=== PATIENT | male | born 1955 | race Caucasian/White ===

== ENCOUNTER 2016-04-25 20:04 | Inpatient (IN) | payer OTHER ==
[~2016-04-25] VITALS: Ht 162.6 cm; Wt 73.6 kg
--- NOTE | 2016-04-25 20:12 | ED GENERAL ADULT ---
History of Present Illness General Chief Complaint: General Adult Stated Complaint: CONGESTION Source: patient, family Exam Limitations: dementia Vital Signs & Intake/Output Vital Signs & Intake/Output Vital Signs Date Time Temp Pulse Resp B/P Pulse O2 O2 Flow FiO2 Ox Delivery Rate 04/26 0429 97.8 70 20 88/60 92 Room Air 04/26 0214 96.8 74 20 102/65 93 Room Air 04/26 0127 97.7 71 22 114/56 94 Room Air 04/26 0037 97.5 82 16 104/67 95 Room Air 04/25 2236 97.9 80 16 111/64 94 Room Air 04/25 2045 92 Room Air Room Air 04/25 2030 99.6 66 18 104/62 88 Room Air ED Intake and Output 04/26 0000 04/25 1200 Intake Total 0 Output Total Balance 0 Intake, Oral 0 Allergies Coded Allergies: lithium (SEIZURE 04/25/16) Reconcile Medications Divalproex Sodium (Divalproex Sodium ER) 500 MG TAB.ER.24H 1,000 MG PO QHS MENTAL HEALTH (Reported) Escitalopram Oxalate 20 MG TABLET 1 TAB PO DAILY MENTAL HEALTH (Reported) Folic Acid 1 MG TABLET 1 TAB PO DAILY SUPPLEMENT (Reported) Melatonin 10 MG CAPSULE 1 CAP PO QPM SLEEP (Reported) Memantine HCl (Namenda) 10 MG TABLET 1 TAB PO BID MEMORY (Reported) Olanzapine 10 MG TABLET 20 MG PO DAILY MENTAL HEALTH (Reported) Thiamine HCl (B-1) (Unknown Strength) TABLET (Unknown Dose) PO DAILY SUPPLEMENT (Reported) Trazodone HCl 50 MG TABLET 1 TAB PO QPM SLEEP (Reported) Triage Nurses Notes Reviewed? yes Onset: Gradual Duration: week(s):, waxing and waning Timing: recent history Injury Environment: home Severity: moderate Modifying Factors: Improves With: rest. 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 His notes that he is unable to care for self at home. Past History Travel History Traveled to [place] past 21 day No Medical History Any Pertinent Medical History? see below for history Neurological: dementia Surgical History Surgical History: none Family History Hx Contributory? No Review of Systems Review of Systems Constitutional: Reports: no symptoms. EENTM: Reports: no symptoms. Respiratory: Reports: no symptoms. Cardiovascular: Reports: no symptoms. GI: Reports: no symptoms. Genitourinary: Reports: no symptoms. Musculoskeletal: Reports: no symptoms. Skin: Reports: no symptoms. Neurological/Psychological: Reports: no symptoms. Hematologic/Endocrine: Reports: no symptoms. Immunologic/Allergic: Reports: no symptoms. All Other Systems: Reviewed and Negative Physical Exam Physical Exam General Appearance: well developed/nourished, mild distress Head: atraumatic, normal appearance Eyes: Bilateral: normal appearance. Ears, Nose, Throat: normal pharynx, normal ENT inspection Neck: normal inspection, supple, full range of motion Respiratory: normal breath sounds, chest non-tender, rhonchi Cardiovascular: regular rate/rhythm Gastrointestinal: normal bowel sounds, soft, non-tender Back: normal inspection, normal range of motion Extremities: normal inspection Neurologic/Psych: no motor/sensory deficits, awake, alert, oriented x 3 Skin: intact, normal color, warm/dry Core Measures ACS in differential dx? No CVA/TIA Diagnosis: No Severe Sepsis Present: No Septic Shock Present: No Progress Differential Diagnoses I considered the following diagnoses in my evaluation of the patient: bronchitis vs pneumonia vs other. Plan of Care: Orders Procedure Date/time Status Regular Diet 04/26 B Active LOWER RESPIRATORY CULTURE 04/26 0411 Active Vital Signs 04/26 0233 Active Teach/Educate 04/26 023 Active Nutritional Intake, Monitor 04/26 023 Active Isolation 04/26 023 Active Intake & Output 04/26 023 Active Patient Care Conference 04/26 0233 Active Activity/Ambulation 04/26 0233 Active Pathway - chart 04/26 0004 Active Pathway - chart 04/26 0003 Active House Staff 04/26 0003 Active Patient Data 04/26 0003 Active Code Status 04/26 0003 Active PT Evaluate & Treat 04/26 UNK Active VTE Mechanical Prophylaxis 04/26 UNK Active Nursing Misc 04/26 UNK Active SOCIAL WORK CONSULT 04/26 UNK Active PSYCHIATRIC CONSULT 04/26 UNK Active Patient Data 04/25 2355 Active Saline Lock 04/25 2153 Active Misc Message 04/25 2153 Active ED Holding Orders 04/25 2153 Active Vital Signs 04/25 2153 Active Code Status 04/25 215 Complete Admit to inpatient 04/25 2152 Active TROPONIN LEVEL 04/25 2142 Complete BLOOD CULTURE 04/25 2024 Active Intake & Output 04/25 2023 Active BLOOD CULTURE 04/25 2022 Active D-DIMER 04/25 2020 Complete EKG 04/25 2020 Active URINALYSIS 04/25 2010 Complete COMPREHENSIVE METABOLIC PANEL 04/25 2010 Complete CBC WITHOUT DIFFERENTIAL 04/25 2010 Complete Current Medications Sig/Lisa Start time Last Medication Dose Stop Time Status Admin Trazodone HCl 50 MG QPM 04/26 2200 AC (Desyrel) Divalproex Sodium 500 MG DAILY 04/26 1000 AC (Depakote ER) Enoxaparin Sodium 40 MG DAILY 04/26 1000 AC (Lovenox) Escitalopram Oxalate 20 MG DAILY 04/26 1000 AC (Lexapro) Folic Acid 1 MG DAILY 04/26 1000 AC (Folic Acid) Memantine 10 MG BID 04/26 1000 AC (Namenda) Olanzapine 20 MG DAILY 04/26 1000 AC (Zyprexa) Thiamine HCl 100 MG DAILY 04/26 1000 AC (Vitamin B1) Acetaminophen 325 MG Q6 PRN 04/26 0015 AC (Tylenol) Melatonin 5 MG AT BEDTIME NEED.. 04/26 0015 AC (Melatonin) Laboratory Tests 04/26/16 0125: Urinalysis LIGHT H, Urine Color YEL, Urine Clarity CLEAR, Urine pH 6.5, Ur Specific [place] 1.015, Urine Protein TRACE H, Urine Ketones TRACE H, Urine Nitrite NEG, Urine Bilirubin NEG, Urine Urobilinogen 1.0, Ur Leukocyte Esterase NEG, Ur Microscopic SEDIMENT EXAMINED, Urine RBC 1-3, Ur Epithelial Cells FEW, Urine Mucus MOD H, Urine Hemoglobin TRACE-LYSED H, Urine Glucose NEG 04/25/16 2143: Anion Gap 12, Estimated GFR > 60, BUN/Creatinine Ratio 30.0 H, Glucose 86, Calcium 9.4, Total Bilirubin 0.5, AST 35, ALT 34, Alkaline Phosphatase 70, Troponin I < 0.01, Total Protein 7.6, Albumin 4.2, Globulin 3.4, Albumin/ Globulin Ratio 1.2, D-Dimer 431 H, CBC w Diff NO MAN DIFF REQ, RBC 4.31 L, MCV 93.8, MCH 31.6 H, RDW 13.7, MPV 8.6, Gran % 58.8, Lymphocytes % 25.3, Monocytes % 14.7 H, Eosinophils % 0.6, Basophils % 0.6, Absolute Granulocytes 4.1, Absolute Lymphocytes 1.8, Absolute Monocytes 1.0 H, Absolute Eosinophils 0, Absolute Basophils 0, PUBS MCHC 33.7 04/25/162020: Troponin I Cancelled Microbiology 04/26 410 LOWER RESP: Respiratory Culture - COLB 04/26 410 LOWER RESP: Gram Stain - COLB 04/25 2142 BLOOD: Blood Culture - RECD 04/25 2136 BLOOD: Blood Culture - RECD Diagnostic Imaging: Viewed by Me: Radiology Read, CT Scan. Discussed w/RAD: Radiology Read, CT Scan. Radiology Impression: ct angio - indeterminant... no significant central PE... full report below. CXR Impression: no acute abnormality, no infiltrates, normal size heart, normal mediastinum Initial ED EKG: normal axis, none, normal intervals, normal p-waves, normal QRS complex, normal sinus rhythm Comments: PATIENT: ALIREZA WING PRESENT AGE: 60 PATIENT ACCOUNT NO: [id number] : 59 LOCATION: [facility] ORDERING PHYSICIAN: LOKESH CRUZ MD SERVICE DATE: 04/25/16 EXAM TYPE: CAT - CTA CHEST-PULMONARY EMBOLISM EXAMINATION: CT ANGIOGRAM OF THE CHEST WITH AND WITHOUT CONTRAST (CT PULMONARY ANGIOGRAM FOR PE) CLINICAL INFORMATION: Dyspnea. Positive d-dimer. COMPARISON: No pertinent prior studies are available for comparison. TECHNIQUE: Prior to contrast administration, noncontrast localization images were obtained. Subsequently, multidetector volumetric imaging was performed from the thoracic inlet to below the diaphragms following the administration of 95 mL Omnipaque 350 intravenous contrast. No adverse contrast reaction reported. Sagittal, coronal, and MIP oblique sagittal reformatted images were obtained on the CT workstation, uploaded to PACS, and reviewed. Total exam dose-length product 585 mGy-cm FINDINGS: QUALITY OF STUDY/CONTRAST BOLUS: Adequate contrast opacification of the pulmonary arterial vasculature. PULMONARY ARTERIES: No evidence of pulmonary embolism to the level of the segmental pulmonary arteries. Limited evaluation of the subsegmental pulmonary arteries secondary to respiratory motion artifact, notably within the bilateral lung bases. No large central pulmonary emboli. THORACIC AORTA: No aneurysm or dissection. LUNG: Evaluation of the lung parenchyma is notable for moderate centrilobular emphysematous changes within the bilateral upper lobes. There is scarring versus atelectasis within the lingula and right middle lobe. No suspicious pulmonary nodules or masses are identified and there is no focal airspace consolidation to suggest infection. The central airways are patent, without endobronchial obstructing lesions. PLEURA: No pleural effusion or pneumothorax. MEDIASTINUM: Normal heart size. No pericardial effusion. No hilar or mediastinal lymphadenopathy. No evidence of septal bowing or right heart strain. CHEST WALL/AXILLA: No axillary or internal mammary lymphadenopathy. OSSEOUS STRUCTURES: No acute or suspicious osseous abnormality. UPPER ABDOMEN: Unremarkable. No reflux of contrast into the hepatic veins to suggest elevated right heart pressures. IMPRESSION: Adequate contrast opacification of the pulmonary arterial vasculature, without evidence of pulmonary embolism to the level of the segmental pulmonary arteries. Evaluation of the subsegmental pulmonary arteries is limited secondary to diffuse respiratory motion abnormality, which degrades image quality. If clinical concern for pulmonary embolism persists, consider correlation with a VQ scan or bilateral lower extremity Doppler ultrasounds. VTE: indeterminate. DICTATED BY: JUN SEALS MD DATE/TIME DICTATED:04/25/162325 WINDOW SHADE CUTTER:SAMIRA DATE/TIME TRANSCRIBED:04/25/162325 CONFIDENTIAL, DO NOT COPY WITHOUT APPROPRIATE AUTHORIZATION. <Electronically signed in Other Vendor System> SIGNED BY: JUN SEALS MD 04/25/16 [id number] PATIENT: ALIREZA WING PRESENT AGE: 60 PATIENT ACCOUNT NO: [id number] : 59 LOCATION: [facility] ORDERING PHYSICIAN: LOKESH CRUZ MD SERVICE DATE: 04/25/16 EXAM TYPE: RAD - XRY-CHEST XRAY, PA AND LATERAL EXAMINATION: XR CHEST CLINICAL INFORMATION: 60-year-old male with dyspnea. COMPARISON: None. TECHNIQUE: PA and lateral views of the chest were obtained. FINDINGS: The heart is normal in size. Pulmonary vascularity is within normal limits. No pleural effusion is seen. Although the lungs are not optimally expanded, there is no definite acute pulmonary parenchymal disease. IMPRESSION: No acute disease. DICTATED BY: MARY JACKSON MD DATE/TIME DICTATED:04/25/162054 WINDOW SHADE CUTTER:SAMIRA DATE/TIME TRANSCRIBED:04/25/162054 CONFIDENTIAL, DO NOT COPY WITHOUT APPROPRIATE AUTHORIZATION. <Electronically signed in Other Vendor System> SIGNED BY: MARY JACKSON MD 2100 Departure Departure Disposition: HOME OR SELF CARE Condition: Stable Clinical Impression Primary Impression: Bronchitis Secondary Impressions: Dementia Referrals: PAMELA RIZZO DO (PCP/Family) Referred to [facility] as new patient No Departure Forms: Customer Survey General Discharge Information Admission Note Spoke With: SCOOBY SÁNCHEZ MD Documentation of Exam: Documentation of any treatments & extenuating circumstances including Concerns Regarding Discharge (functional status, medication knowledge or non-compliance, living conditions, etc.) that warrant an admission rather than observation: pt with profound dementia, also with bronchitis, with low 02 sat... requires supplemental 02, antibiotics. Critical Care Note Critical Care Note Critical Care Time: non-applicable
--- NOTE | 2016-04-25 20:23 | NUR ---
PT TO ED FOR ?SOCIAL ADMIT. PT LIVES AT HOME WITH AND IS UNABLE TO TAKE CARE OF HIMSELF D/T SEVERE ALZHEIMERS/DEMENTIA. 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 PER , PT HAS ALSO BEEN A LITTLE CONGESTED. PT'S O2 SAT 88-92% ON RA.
--- NOTE | 2016-04-25 20:33 | NUR ---
PT AMBULATED TO XRAY WITH STEADY GAIT AND NO ACUTE DISTRESS NOTED.
[2016-04-25] MEDS ORDERED: DIVALPROEX SOD500 M3 PO (20:48)
[2016-04-25] MEDS ORDERED: OLANZAPINE10 M1 PO (20:48)
[2016-04-25] MEDS ORDERED: MELATONIN10 M5 PO (20:49)
[2016-04-25] MEDS ORDERED: NAMENDA10 M2 PO (20:49)
[2016-04-25] MEDS ORDERED: TRAZODONE HCL50 M1 PO (20:50)
[2016-04-25] MEDS ORDERED: ESCITALOPRAM OX20 MG PO (20:51)
[2016-04-25] MEDS ORDERED: FOLIC ACID1 M1 PO (20:51)
[2016-04-25] MEDS ORDERED: B-1100 MG PO (20:52)
--- NOTE | 2016-04-25 21:01 | RADIOLOGY REPORT ---
EXAMINATION: XR CHEST CLINICAL INFORMATION: 60-year-old male with dyspnea. COMPARISON: None. TECHNIQUE: PA and lateral views of the chest were obtained. FINDINGS: The heart is normal in size. Pulmonary vascularity is within normal limits. No pleural effusion is seen. Although the lungs are not optimally expanded, there is no definite acute pulmonary parenchymal disease. IMPRESSION: No acute disease.
[2016-04-25 21:53] LABS: ABSOLUTE BASOPHIL COUNT 0 /CUMM (0.0-0.2); ABSOLUTE EOSINOPHIL COUNT 0 /CUMM (0.0-0.7); ABSOLUTE GRANULOCYTE CT 4.1 /CUMM (1.4-6.5); ABSOLUTE LYMPH COUNT 1.8 /CUMM (1.2-3.4); BASOPHIL % 0.6 % (0.0-2.0); EOSINOPHIL % 0.6 % (0-5); GRANULOCYTE % 58.8 % (42.2-75.2); HEMATOCRIT 40.4 % (42-52); MEAN CORPUSCULAR HGB 31.6 PG (27.0-31.0); MEAN CORPUSCULAR HGB CONC 33.7 G/DL (33.0-37.0); MEAN CORPUSCULAR VOLUME 93.8 FL (80.0-94.0); MEAN PLATELET VOLUME 8.6 FL (7.4-10.4); PLATELET COUNT 232 /CUMM (130-400); RBC DISTRIBUTION WIDTH 13.7 % (11.5-14.5); RED BLOOD CELL CT 4.31 /CUMM (4.70-6.10); WHITE BLOOD CELL COUNT 6.9 /CUMM (4.8-10.8)
--- NOTE | 2016-04-25 23:07 | NUR ---
BLOOD CULTURES SECOND SET DRAWN. IV #20G INSERTED ON RIGHT AC. IV ROCEPHIN ORDERED. PT TAKEN TO CT SCAN VIA WHEELCHAIR AT THIS TIME.
--- NOTE | 2016-04-25 23:27 | NUR ---
BACK FROM CT SCAN. IV ZITHROMYCIN INFUSING ORDERED. SETTLED IN BED. SITTER AT THE BEDSIDE.
--- NOTE | 2016-04-25 23:39 | CT SCAN REPORT ---
EXAMINATION: CT ANGIOGRAM OF THE CHEST WITH AND WITHOUT CONTRAST (CT PULMONARY ANGIOGRAM FOR PE) CLINICAL INFORMATION: Dyspnea. Positive d-dimer. COMPARISON: No pertinent prior studies are available for comparison. TECHNIQUE: Prior to contrast administration, noncontrast localization images were obtained. Subsequently, multidetector volumetric imaging was performed from the thoracic inlet to below the diaphragms following the administration of 95 mL Omnipaque 350 intravenous contrast. No adverse contrast reaction reported. Sagittal, coronal, and MIP oblique sagittal reformatted images were obtained on the CT workstation, uploaded to PACS, and reviewed. Total exam dose-length product 585 mGy-cm FINDINGS: QUALITY OF STUDY/CONTRAST BOLUS: Adequate contrast opacification of the pulmonary arterial vasculature. PULMONARY ARTERIES: No evidence of pulmonary embolism to the level of the segmental pulmonary arteries. Limited evaluation of the subsegmental pulmonary arteries secondary to respiratory motion artifact, notably within the bilateral lung bases. No large central pulmonary emboli. THORACIC AORTA: No aneurysm or dissection. LUNG: Evaluation of the lung parenchyma is notable for moderate centrilobular emphysematous changes within the bilateral upper lobes. There is scarring versus atelectasis within the lingula and right middle lobe. No suspicious pulmonary nodules or masses are identified and there is no focal airspace consolidation to suggest infection. The central airways are patent, without endobronchial obstructing lesions. PLEURA: No pleural effusion or pneumothorax. MEDIASTINUM: Normal heart size. No pericardial effusion. No hilar or mediastinal lymphadenopathy. No evidence of septal bowing or right heart strain. CHEST WALL/AXILLA: No axillary or internal mammary lymphadenopathy. OSSEOUS STRUCTURES: No acute or suspicious osseous abnormality. UPPER ABDOMEN: Unremarkable. No reflux of contrast into the hepatic veins to suggest elevated right heart pressures. IMPRESSION: Adequate contrast opacification of the pulmonary arterial vasculature, without evidence of pulmonary embolism to the level of the segmental pulmonary arteries. Evaluation of the subsegmental pulmonary arteries is limited secondary to diffuse respiratory motion abnormality, which degrades image quality. If clinical concern for pulmonary embolism persists, consider correlation with a VQ scan or bilateral lower extremity Doppler ultrasounds. VTE: indeterminate.
--- NOTE | 2016-04-26 00:10 | History & Physical ---
MANOLO FRANCIS,[facility] 04/26/16 0010: General Information and HPI MD Statement: I have seen and personally examined ALIREZA WING and documented this H&P. The patient is a 60 year old M who presented with a patient stated chief complaint of [shortness breath and chest congestion]. Source of Information: family, old records Exam Limitations: clinical condition, confusion, dementia, poor historian History of Present Illness: Pt is confused and did not provide any history, his who will be admitted to the ICU provided all the history. 60/M Alzheimer's, depression was brought into the ED by ambulance for new onset cough and chest congestion. Patient has severe dementia and he is not capable of taking care of himself, he lives with his who takes care of him. His was admitted to the hospital today, and it is unsafe to leave him home alone. reports that he has cough productive of sputum and congested chest for the past few days. Denies any chest pain, palpitations, nausea, vomiting, abdominal pain, urinary or bowel symptoms. The is his only caregiver. In the emergency department his saturations dropped to 88% on room air. This is more of a social admit Allergies/Medications Allergies: Coded Allergies: lithium (SEIZURE 04/25/16) Home Med list Divalproex Sodium (Divalproex Sodium ER) 500 MG TAB.ER.24H 1,000 MG PO QHS MENTAL HEALTH (Reported) Escitalopram Oxalate 20 MG TABLET 1 TAB PO DAILY MENTAL HEALTH (Reported) Folic Acid 1 MG TABLET 1 TAB PO DAILY SUPPLEMENT (Reported) Melatonin 10 MG CAPSULE 1 CAP PO QPM SLEEP (Reported) Memantine HCl (Namenda) 10 MG TABLET 1 TAB PO BID MEMORY (Reported) Olanzapine 10 MG TABLET 20 MG PO DAILY MENTAL HEALTH (Reported) Thiamine HCl (B-1) (Unknown Strength) TABLET (Unknown Dose) PO DAILY SUPPLEMENT (Reported) Trazodone HCl 50 MG TABLET 1 TAB PO QPM SLEEP (Reported) Past History Travel History Traveled to [place] past 21 day No Medical History Neurological: KORSAKOFF SYNDROME EENT: NONE Cardiovascular: NONE Respiratory: NONE Gastrointestinal: NONE Hepatic: NONE Renal: NONE Musculoskeletal: NONE Psychiatric: PAST USE OF ALCOHOLISM WITH KORSAKOFF SYNDROME NO LONGER ALCOHOLIC Endocrine: NONE Blood Disorders: NONE Cancer(s): NONE CREDIT COLLECTIONS ANALYST/Reproductive: NONE Surgical History Surgical History: unobtainable Past Family/Social History Psychosocial History ETOH Use: denies use Illicit Drug Use: denies illicit drug use Review of Systems Review of Systems Constitutional: Denies: chills, fever, weakness. Cardiovascular: Reports: see HPI. Denies: chest pain, orthopena, peripheral edema, syncope. Respiratory: Reports: cough, sputum production. Denies: orthopnea, wheezing. GI: Denies: abdominal pain, diarrhea, nausea, vomiting. Genitourinary: Denies: dysuria. Exam & Diagnostic Data Last 24 Hrs of Vital Signs/I&O Vital Signs Date Time Temp Pulse Resp B/P Pulse O2 O2 Flow FiO2 Ox Delivery Rate 04/26 0724 98.2 75 20 130/80 94 Room Air 04/26 0429 97.8 70 20 88/60 92 Room Air 04/26 0214 96.8 74 20 102/65 93 Room Air 04/26 0127 97.7 71 22 114/56 94 Room Air 04/26 0037 97.5 82 16 104/67 95 Room Air 04/25 2236 97.9 80 16 111/64 94 Room Air 04/25 2045 92 Room Air Room Air 04/25 2030 99.6 66 18 104/62 88 Room Air Intake & Output 04/26 1600 04/26 0800 04/26 0000 Intake Total 250 0 Output Total Balance 250 0 Intake, IV 250 Intake, Oral 0 Physical Exam General Appearance Alert, disoriented X3, pt is confused and does not follow insructions. Skin No Rashes HEENT Atraumatic, PERRLA, EOMI, dry Neck No JVD Cardiovascular Regular Rate, Normal S1, Normal S2, No Murmurs Lungs can't be assess Abdomen Soft, No Tenderness Extremities No Edema Last 24 Hrs of Labs/Rolando: Laboratory Tests 04/26/16 0125: Urinalysis LIGHT H, Urine Color YEL, Urine Clarity CLEAR, Urine pH 6.5, Ur Specific [place] 1.015, Urine Protein TRACE H, Urine Ketones TRACE H, Urine Nitrite NEG, Urine Bilirubin NEG, Urine Urobilinogen 1.0, Ur Leukocyte Esterase NEG, Ur Microscopic SEDIMENT EXAMINED, Urine RBC 1-3, Ur Epithelial Cells FEW, Urine Mucus MOD H, Urine Hemoglobin TRACE-LYSED H, Urine Glucose NEG 04/25/16 2143: Anion Gap 12, Estimated GFR > 60, BUN/Creatinine Ratio 30.0 H, Glucose 86, Calcium 9.4, Total Bilirubin 0.5, AST 35, ALT 34, Alkaline Phosphatase 70, Troponin I < 0.01, Total Protein 7.6, Albumin 4.2, Globulin 3.4, Albumin/ Globulin Ratio 1.2, D-Dimer 431 H, CBC w Diff NO MAN DIFF REQ, RBC 4.31 L, MCV 93.8, MCH 31.6 H, RDW 13.7, MPV 8.6, Gran % 58.8, Lymphocytes % 25.3, Monocytes % 14.7 H, Eosinophils % 0.6, Basophils % 0.6, Absolute Granulocytes 4.1, Absolute Lymphocytes 1.8, Absolute Monocytes 1.0 H, Absolute Eosinophils 0, Absolute Basophils 0, PUBS MCHC 33.7 04/25/162020: Troponin I Cancelled Microbiology 04/26 617 URINE ROUT: Legionella Antigen - ORD 04/26 617 URINE ROUT: Streptococcus pneumoniae Antigen (M - ORD 04/26 410 LOWER RESP: Respiratory Culture - COLB 04/26 410 LOWER RESP: Gram Stain - COLB 04/25 2142 BLOOD: Blood Culture - RECD 04/25 2136 BLOOD: Blood Culture - RECD Assessment/Plan Assessment: #Desaturation at the ED Pt has congestion with cough likely viral URI. No evidence of pneumonia on chest x-ray. No signs of infection at this time. CT negative for PE. * TRC [id number] * We'll Check rapid flu * We'll watch off antibiotics at this time since patient has no signs of infection. * Gentle hydration with normal saline at 75 mL an hour * Blood and sputum cultures #Confusion mostly 2/2 dementia Patient is demented, his said he gets confused everytime he is outside the house. pt lives with his who take care of him. he depend on her 100%. * 1:1 sitter. * Continue him on Namenda * Social work consult for planning a safe disposition #depression * Psych consult in a.m. * Continue home medications Depakote, Lexapro and Olanzepine Regular diet Full code Mild pain pathway Subcutaneous Lovenox for DVT prophylaxis As Ranked By This Provider Problem List: 1. Dementia 2. Bronchitis Core Measures/Miscellaneous Acute Coronary Syndrome ACS Diagnosis: No Cerebrovascular Accident CVA/TIA Diagnosis: No Congestive Heart Failure CHF Diagnosis: No Venous Thromboembolism VTE Risk Factors: Acute medical illness, Age > 40 VTE Prophylaxis Ordered Inpt: Mech & Pharm No Mech VTE prophylaxis d/t: No contraindications No VTE Pharm Prophylaxis d/t: No contraindications VTE Diagnosis: No VTE Type: NONE VTE Confirmed by (Test): NONE Severe Sepsis Severe Sepsis Present: No Septic Shock Septic Shock Present: No Miscellaneous Documentation Attending Case Discussed With: YONAS FRANCIS,MONIKA Primary Care Physician: PAMELA RIZZO DO Patient sees these Specialists SCOOBY SÁNCHEZ Level of Patient Care: General Medicine RAYAS ALVAREZ 04/26/16 0329: Resident Review Statement Resident Statement: examined this patient, discussed with technical support internship Other Findings: Patient is a 60-year-old male with past medical history of Alzheimer's, depression was brought into the ED by ambulance for cough and congestion. Patient is a social admit. He lives at home with his who takes care of him. He has dementia at baseline and is unable to take care of himself. Since the is admitted to the hospital, patient has been deemed unsafe to stay home by himself. reports that he had been a little congested and has had productive sputum for the past few days. Denies any chest pain, palpitations, nausea, vomiting, abdominal pain, urinary or bowel symptoms. The is the conservator and his sole caregiver. In the emergency department his saturations dropped to 88% on room air. Vitals at admission: Temperature 99.6, pulse 66, respiration 18, blood pressure 104/62, saturating 88% on room air. Labs showed H&H 13.6/40.4, troponins negative, creatinine 1.1(baseline 0.7) EKG: Normal sinus rhythm, 96 bpm, QTC 410 Chest CTA negative for PE Chest x-ray negative for any acute disease Physical exam: Gen.: Not alert, not oriented to time place and person. Actively hallucinating , has a sitter. HEENT:, PERRLA EOMI Chest: Clear chest CVS: S1-S2, no murmurs rubs or gallops Abdomen: Nontender, bowel sounds positive Extremities: No edema, pulses intact Plan: 1.Shortness of breath, congestion likely secondary to Bronchitis: No evidence of pneumonia on chest x-ray. No signs of infection at this time. CT negative for PE.Trasient desatiration in the ED. Now comfortable on room air. -We'll admit patient to [facility] [id number] -Check rapid flu -Patient received 1 dose of IV ceftriaxone and azithromycin in the ED. We'll watch off antibiotics at this time since patient has no signs of infection. -Gentle hydration with normal saline at 75 mL an hour -Blood and sputum cultures 2. Delirium/Dementia/deconditioning: Patient is demented, actively hallucinating at this time. Has a sitter on board. -Patient lives at home with ALETHEA WING who is caregiver and conservator. At this point she is admitted to the ICU and there is nobody to take care of the patient at home. -Continue him on Namenda -Continue multivitamin and folate -Social work consult for planning a safe disposition -Psych consult placed. 3. History of depression: Patient is actively hallucinating and delusional at this time. -Psych consult in a.m. -Continue home medications Depakote, Lexapro and Olanzepine Regular diet Full code Mild pain pathway Subcutaneous Lovenox for DVT prophylaxis PRINCESS,AARTEE 04/26/16 0653: Attending MD Review Statement Attending Statement Attending MD Statement: examined this patient, discuss w/resident/PA/LEATHER CLEANER, agreed w/resident/PA/LEATHER CLEANER, discussed with family, reviewed EMR data (avail), reviewed images, amended to note Attending Assessment/Plan: CC: AMS PMHx : Depression, neurocognitive disorder, suspect Wernicke Korsakoff; Alcohol use disorder severe in remission Patient does not provide any details, patient's ALETHEA WING who is his conservator is being admitted to ICU, provides the history. Patient was confused in ER, he was accompanying his . ER physician did not find it safe to discharge him. states that patient had upper respiratory congestion, with some cough. Otherwise denied any other symptoms. They do not have any next to kin. states that patient gets confused once he leaves home. Cannot take care of himself, needs assistance in most of things. Vitals: Temperature 99.6 HR, RR, BP, O2 saturation within acceptable range. On examination Patient confused, inappropriate responses, doesn't follow instructions. Mucosa dry. RS, CVS, abdomen exam unremarkable. No dependent edema, no JVD, and no lymphadenopathy. Labs: WBC 6.9, hemoglobin 13.6, BUN 33, d-dimer 431. Otherwise BMP, LFT unremarkable, UA shows trace protein and ketones. Chest x-ray and CTA was obtained in ER : No obvious pneumonia, PE could not be ruled out. A and P #1 Encephalopathy Vs delirium: Probably secondary to underlying neurological conditions, less likely hepatic in origin but patient has history of alcoholism, check ammonia, patient appears dehydrated, continue gentle hydration, no evidence of any acute infection. Patient was transiently hypoxic in ER for unclear reasons. Respiratory examination and imaging unremarkable, continue nebulization treatment. Psych consult, social consult for placement given his in ICU who is conservator as well, nobody at home to take care of him. #2 history of depression with neurocognitive disorder: Continue his home medications. #3 DVT prophylaxis with Lovenox, avoid opiates and benzodiazepines.
--- NOTE | 2016-04-26 00:28 | NUR ---
HOUSESTAFF AT BEDSIDE. SITTER IN PLACE.
--- NOTE | 2016-04-26 01:27 | NUR ---
ST CATH FOR 300CCS CONCENTRATED URINE. GROIN RAW WITH YEAST SMELL, PERICARE PROVIDED AND URINE SENT. CHANGED INTO [facility].
--- NOTE | 2016-04-26 01:58 | NUR ---
REMAINS CONFUSED AND DISORIENTED SITTER IN PLACE.
--- NOTE | 2016-04-26 02:07 | NUR ---
REPORT TO SLOAN.
[2016-04-26 04:29] VITALS: BP 88/60
--- NOTE | 2016-04-26 06:55 | Admission Certification ---
Admission Certification Certification Statement - As attending physician, I certify that at the time of - admission, based on clinical presentation, severity of - symptoms, need for further diagnostic testing and - therapeutic interventions, and risk of adverse outcomes - without in-hospital treatment, in my clinical assessment, - this patient requires an acute hospital stay for a minimum - of two nights or longer. I have also considered psychsocial - factors such as support system, advanced age, financial - issues, cognitive issues, and failed out-patient treatments, - past re-admission history, safety of patient, and lack of - compliance as applicable. Specific rationale supporting this admission is: Encephalopathy
[2016-04-26 07:24] VITALS: BP 130/80
--- NOTE | 2016-04-26 10:12 | PN- Housestaff ---
DEMETRIUS FRANCIS,MATTHEW 04/26/16 1011: Subjective Follow-up For: Alzheimer dementia Bronchitis Complaints: patient noted very confused and unable to provide anyROS Subjective: Patient is comfortably lying in bed. Noted very confused. Disoriented to time place or person. Unable to contribute to ROS Review of Systems Constitutional: Reports: see HPI. Objective Last 24 Hrs of Vital Signs/I&O Vital Signs Date Time Temp Pulse Resp B/P Pulse O2 O2 Flow FiO2 Ox Delivery Rate 04/26 1040 Room Air Room Air 04/26 0724 98.2 75 20 130/80 94 Room Air 04/26 0429 97.8 70 20 88/60 92 Room Air 04/26 0214 96.8 74 20 102/65 93 Room Air 04/26 0127 97.7 71 22 114/56 94 Room Air 04/26 0037 97.5 82 16 104/67 95 Room Air 04/25 2236 97.9 80 16 111/64 94 Room Air 04/25 2045 92 Room Air Room Air 04/25 2030 99.6 66 18 104/62 88 Room Air Intake & Output 04/26 1600 04/26 0800 04/26 0000 Intake Total 250 0 Output Total Balance 250 0 Intake, IV 250 Intake, Oral 0 Physical Exam General Appearance: Alert, Cooperative, confused to time place and person Skin: No Rashes HEENT: Atraumatic, PERRLA, EOMI, Mucous Membr. moist/pink Neck: Supple Cardiovascular: Regular Rate, Normal S1, Normal S2, No Murmurs Lungs: Clear to Auscultation, Normal Air Movement Abdomen: Normal Bowel Sounds, Soft, No Tenderness Neurological: Normal Speech, Normal Tone, Sensation Intact Extremities: No Edema Vascular: Normal Pulses, Pulses Symmetrical Current Medications: Current Medications Sig/Lisa Start time Last Medication Dose Route Stop Time Status Admin Acetaminophen 325 MG Q6 PRN 04/26 0015 AC PO Azithromycin 500 MG ONCE ONE 04/26 229 DC 04/25 Sodium Chloride 250 ML IV 04/26 Azithromycin 500 MG ONCE ONE 04/25 2214 DC 04/25 PO 04/25 Ceftriaxone Sodium 0 .STK-MED ONE 04/25 2256 DC .ROUTE Ceftriaxone Sodium 1,000 MG ONCE ONE 04/25 2214 DC 04/25 IV 04/25 Divalproex Sodium 1,000 MG AT BEDTIME 01/03 2200 UNVr PO Divalproex Sodium 500 MG DAILY 04/26 1000 DC PO Enoxaparin Sodium 40 MG DAILY 04/26 1000 AC 04/26 SC 1056 Escitalopram Oxalate 20 MG DAILY 04/26 1000 AC 04/26 PO 1056 Folic Acid 1 MG DAILY 04/26 1000 AC 04/26 PO 1056 Lidocaine 0 .STK-MED ONE 04/26 0100 DC .ROUTE Melatonin 5 MG AT BEDTIME NEED.. 04/26 0015 AC PO Memantine 10 MG BID 04/26 1000 AC 04/26 PO 1057 Methylprednisolone 40 MG Q8 04/26 1400 CAN IV Olanzapine 25 MG AT BEDTIME 04/26 2200 UNVr PO Olanzapine 20 MG DAILY 04/26 1000 DC PO Prednisone 40 MG DAILY 04/26 1005 AC PO Sodium Chloride 1,000 ML Q13H 04/26 0345 AC 04/26 IV 04/26 1644 0345 Thiamine HCl 100 MG DAILY 04/26 1000 AC 04/26 PO 1057 Trazodone HCl 50 MG QPM 04/26 2200 DC PO Trazodone HCl 25 MG BID PRN 04/26 1100 UNVr PO Trazodone HCl 50 MG QPM PRN 04/26 1054 UNVr PO Last 24 Hrs of Lab/Rolando Results Last 24 Hrs of Labs/Mics: Laboratory Tests 04/26/16 0125: Urinalysis LIGHT H, Urine Color YEL, Urine Clarity CLEAR, Urine pH 6.5, Ur Specific [place] 1.015, Urine Protein TRACE H, Urine Ketones TRACE H, Urine Nitrite NEG, Urine Bilirubin NEG, Urine Urobilinogen 1.0, Ur Leukocyte Esterase NEG, Ur Microscopic SEDIMENT EXAMINED, Urine RBC 1-3, Ur Epithelial Cells FEW, Urine Mucus MOD H, Urine Hemoglobin TRACE-LYSED H, Urine Glucose NEG 04/25/16 2143: Anion Gap 12, Estimated GFR > 60, BUN/Creatinine Ratio 30.0 H, Glucose 86, Calcium 9.4, Total Bilirubin 0.5, AST 35, ALT 34, Alkaline Phosphatase 70, Troponin I < 0.01, Total Protein 7.6, Albumin 4.2, Globulin 3.4, Albumin/ Globulin Ratio 1.2, D-Dimer 431 H, CBC w Diff NO MAN DIFF REQ, RBC 4.31 L, MCV 93.8, MCH 31.6 H, RDW 13.7, MPV 8.6, Gran % 58.8, Lymphocytes % 25.3, Monocytes % 14.7 H, Eosinophils % 0.6, Basophils % 0.6, Absolute Granulocytes 4.1, Absolute Lymphocytes 1.8, Absolute Monocytes 1.0 H, Absolute Eosinophils 0, Absolute Basophils 0, PUBS MCHC 33.7 04/25/162020: Troponin I Cancelled Microbiology 04/26 617 URINE ROUT: Legionella Antigen - COLB 04/26 617 URINE ROUT: Streptococcus pneumoniae Antigen (M - COLB 04/26 410 LOWER RESP: Respiratory Culture - COLB 04/26 410 LOWER RESP: Gram Stain - COLB 04/25 2142 BLOOD: Blood Culture - RECD 04/25 2136 BLOOD: Blood Culture - RECD Assessment/Plan Assessment: This is 60-year-old male with past medical history of Alzheimer dementia, depression admitted with chief complaint of cough and congestion with significant confusion. Patient's is the care provider who was admitted to the hospital and patient cannot take care of himself. 1. Acute bronchitis - Patient noted significantly improved without any cough or shortness of breath - We'll switch IV steroid to prednisone taper - Watch off antibiotics, patient remains afebrile - [facility] 2. Alzheimer dementia We'll continue Namenda Also continue Zyprexa 3. Depression Continue home dose trazodone and Depakote 4. DVT prophylaxis Subcutaneous Lovenox Problem List: 1. Dementia 2. Bronchitis Pain Ratin Pain Location: none Pain Goal: Pain 4 or less Pain Plan: Tylenol as needed Tomorrow's Labs & Rationales: none YONAS FRANCIS,MONIKA 04/26/16 1206: Attending MD Review Statement Attending Statement Attending MD Statement: examined this patient, discuss w/resident/PA/VACATION SALES ADVISOR, agreed w/resident/PA/VACATION SALES ADVISOR, reviewed EMR data (avail), discussed with nursing, discussed with case mgmt, reviewed images, amended to note Attending Assessment/Plan: Patient seen and examined, he isn't able to communicate well secondary to having advanced dementia. Currently denies any complaints. Vital Signs Date Time Temp Pulse Resp B/P Pulse O2 O2 Flow FiO2 Ox Delivery Rate 04/26 1040 Room Air Room Air 04/26 0724 98.2 75 20 130/80 94 Room Air 04/26 0429 97.8 70 20 88/60 92 Room Air 04/26 0214 96.8 74 20 102/65 93 Room Air 04/26 0127 97.7 71 22 114/56 94 Room Air 04/26 0037 97.5 82 16 104/67 95 Room Air 04/25 2236 97.9 80 16 111/64 94 Room Air 04/25 2045 92 Room Air Room Air 04/25 2030 99.6 66 18 104/62 88 Room Air on exam; awake, nad. cv; s1,s2, rrr. resp; clear b/l abd; soft, nt, bs+. ext; no edema. Laboratory Tests 04/26 04/26 1149 1149 Chemistry Sodium Pending Potassium Pending Chloride Pending Carbon Dioxide Pending Anion Gap Pending BUN Pending Creatinine Pending BUN/Creatinine Ratio Pending Ammonia Pending Triglycerides Cancelled Pending Cholesterol Cancelled Pending LDL Cholesterol, Calc Cancelled Pending HDL Cholesterol Cancelled Pending Cholesterol/HDL Ratio Cancelled Pending Toxicology Valproic Acid Pending Cancelled 04/26 04/25 0125 2143 Chemistry Sodium (137 - 145 mmol/L) 140 Potassium (3.5 - 5.1 mmol/L) 4.4 Chloride (98 - 107 mmol/L) 102 Carbon Dioxide (22 - 30 mmol/L) 26 Anion Gap (5 - 16) 12 BUN (9 - 20 mg/dL) 33 H Creatinine (0.7 - 1.2 mg/dL) 1.1 Estimated GFR (>60 ml/min) > 60 BUN/Creatinine Ratio (7 - 25 %) 30.0 H Glucose (65 - 99 mg/dL) 86 Calcium (8.4 - 10.2 mg/dL) 9.4 Total Bilirubin (0.2 - 1.3 mg/dL) 0.5 AST (17 - 59 U/L) 35 ALT (21 - 72 U/L) 34 Alkaline Phosphatase (< 127 U/L) 70 Troponin I (<0.11 ng/ml) < 0.01 Total Protein (6.3 - 8.2 g/dL) 7.6 Albumin (3.5 - 5.0 g/dL) 4.2 Globulin (1.9 - 4.2 gm/dL) 3.4 Albumin/Globulin Ratio (1.1 - 2.2 %) 1.2 Coagulation D-Dimer (70 - 232 ng/ml) 431 H Hematology CBC w Diff NO MAN DIFF REQ WBC (4.8 - 10.8 /CUMM) 6.9 RBC (4.70 - 6.10 /CUMM) 4.31 L Hgb (14.0 - 18.0 G/DL) 13.6 L Hct (42 - 52 %) 40.4 L MCV (80.0 - 94.0 FL) 93.8 MCH (27.0 - 31.0 PG) 31.6 H RDW (11.5 - 14.5 %) 13.7 Plt Count (130 - 400 /CUMM) 232 MPV (7.4 - 10.4 FL) 8.6 Gran % (42.2 - 75.2 %) 58.8 Lymphocytes % (20.5 - 51.1 %) 25.3 Monocytes % (1.7 - 9.3 %) 14.7 H Eosinophils % (0 - 5 %) 0.6 Basophils % (0.0 - 2.0 %) 0.6 Absolute Granulocytes (1.4 - 6.5 /CUMM) 4.1 Absolute Lymphocytes (1.2 - 3.4 /CUMM) 1.8 Absolute Monocytes (0.10 - 0.60 /CUMM) 1.0 H Absolute Eosinophils (0.0 - 0.7 /CUMM) 0 Absolute Basophils (0.0 - 0.2 /CUMM) 0 PUBS MCHC (33.0 - 37.0 G/DL) 33.7 Urines Urinalysis LIGHT H Urine Color (YEL,AMB,STR) YEL Urine Clarity (CLEAR) CLEAR Urine pH (5.0 - 8.0) 6.5 Ur Specific [place] (1.001 - 1.035) 1.015 Urine Protein (NEG,<30 MG/DL) TRACE H Urine Ketones (NEG) TRACE H Urine Nitrite (NEG) NEG Urine Bilirubin (NEG) NEG Urine Urobilinogen (0.1 - 1.0 EU/dl) 1.0 Ur Leukocyte Esterase (NEG) NEG Ur Microscopic SEDIMENT EXAMINED Urine RBC (0 - 5 /HPF) 1-3 Ur Epithelial Cells (NONE,FEW) FEW Urine Mucus (FEW,NONE) MOD H Urine Hemoglobin (NEG) TRACE-LYSED H Urine Glucose (N MG/DL) NEG 04/25 2020 Chemistry Troponin I Cancelled A/p; 60-year-old male with history significant for advanced dementia, Korsakoff syndrome who was admitted with acute bronchitis and had a transient hypotension this morning. Currently blood pressure improved, can discontinue IV fluids and encourage by mouth fluid intake. Will change IV steroids to oral prednisone. Patient seen by physical therapy. Continue all other current medications. DVT prophylaxis: Lovenox. Patient might need placement.
--- NOTE | 2016-04-26 13:56 | NUR ---
0230 ADMITTED FROM ER VIA STRETCHER TO ROOM 230 BED 2.60 YRS OLD WF FROM HOME. ABLE TO MOVE FROM STRETCHER TO BED.PT IS CONFUSED & WONDERS.SITTER CAME TO FLOOR WITH PT FOR SAFETY REASON.ON RA.HL IN [facility].PT'S IS THE PRIMARY CARE GIVEN BUT SHE HAS BEEN ADMITTED TO [facility] ICU.NO ONE TO TAKE CARE OF PT AT HOME.A&CX2.PT SETTLED TO SLEEP WITH SITTER AT BEDSIDE.ON RA.NO RESP DISTRESS NOTED.
--- NOTE | 2016-04-26 15:16 | NUR ---
Referral received this am via electronic bordereau clerk. This patient is a 60 year old man with dementia, who is typically cared for at home by his , who was admitted to [facility] last evening. Patient unable to be cared for athome alone. Patient has [facility] C for laborer [employer] care benefit. Will follow and collaborate with case management to create safe discharge plan.
[2016-04-26 15:32] VITALS: BP 118/72
[2016-04-26 21:50] VITALS: BP 118/76
[2016-04-27 07:16] VITALS: BP 120/80
--- NOTE | 2016-04-27 07:22 | PN- Housestaff ---
BIBI SANDOVAL 04/27/16 0722: Subjective Follow-up For: Alzheimer dementia Bronchitis Complaints: no complaints Subjective: Was seen and examined the patient today morning, patient was very confused and agitated and trying to get out of the bed, a sitter was placed, psych on board, recommendations for when necessary trazodone in case the patient gets very agitated overnight. Review of Systems Constitutional: Reports: see HPI. Objective Last 24 Hrs of Vital Signs/I&O Vital Signs Date Time Temp Pulse Resp B/P Pulse O2 O2 Flow FiO2 Ox Delivery Rate 04/27 0716 97.6 48 18 120/80 92 04/27 0000 95 Room Air 04/26 2150 97.5 73 18 118/76 95 Room Air 04/26 1532 97.6 82 20 118/72 93 04/26 1040 Room Air Room Air 04/26 0724 98.2 75 20 130/80 94 Room Air Intake & Output 04/27 0800 04/27 0000 04/26 1600 Intake Total 150 480 800 Output Total 550 350 Balance 150 -70 450 Intake, IV 300 Intake, Oral 150 480 500 Output, Urine 550 350 Physical Exam General Appearance: not alert, oriented, confused, agitated, getting out of bed Skin: No Rashes, No Breakdown HEENT: Atraumatic, PERRLA Lymphatic: no lad Cardiovascular: Regular Rate, Normal S1, Normal S2 Lungs: Normal Air Movement Abdomen: Normal Bowel Sounds, Soft, No Tenderness Extremities: No Clubbing, No Cyanosis, No Edema Vascular: Normal Pulses Current Medications: Current Medications Sig/Lisa Start time Last Medication Dose Route Stop Time Status Admin Acetaminophen 325 MG Q6 PRN 04/26 0015 AC PO Divalproex Sodium 1,000 MG AT BEDTIME 04/26 2200 AC 04/26 PO 2057 Divalproex Sodium 500 MG DAILY 04/26 1000 DC PO Enoxaparin Sodium 40 MG DAILY 04/26 1000 AC 04/26 SC 1056 Escitalopram Oxalate 20 MG DAILY 04/26 1000 AC 04/26 PO 105 Folic Acid 1 MG DAILY 04/26 1000 AC 04/26 PO 105 Influenza Virus 0.5 ML ONCE ONE 04/26 1345 DC 04/26 Vaccine IM 04/26 1346 1612 Melatonin 5 MG AT BEDTIME NEED.. 04/26 0015 AC PO Memantine 10 MG BID 04/26 1000 AC 04/26 PO 2058 Methylprednisolone 40 MG Q8 04/26 1400 CAN IV Nystatin 1 CELINA TID 04/26 1121 AC 04/26 TOP 2057 Olanzapine 25 MG AT BEDTIME 04/26 2200 AC 04/26 PO 2058 Olanzapine 20 MG DAILY 04/26 1000 DC PO Patient Medication 1 ED .STK-MED ONE 04/26 1418 DC Teaching ED 04/26 1419 Prednisone 40 MG DAILY 04/26 1005 AC 04/26 PO 1255 Sodium Chloride 1,000 ML Q13H 04/26 0345 DC 04/26 IV 04/26 1644 0345 Thiamine HCl 100 MG DAILY 04/26 1000 AC 04/26 PO 1057 Trazodone HCl 50 MG QPM 04/26 2200 DC PO Trazodone HCl 50 MG QPM PRN 04/26 2200 AC PO Trazodone HCl 25 MG BID PRN 04/26 1100 AC PO Last 24 Hrs of Lab/Rolando Results Last 24 Hrs of Labs/Mics: Laboratory Tests 04/26/16 1149: Triglycerides Cancelled, Cholesterol Cancelled, LDL Cholesterol, Calc Cancelled, HDL Cholesterol Cancelled, Cholesterol/HDL Ratio Cancelled, Valproic Acid 36.6 L 04/26/16 1149: Anion Gap 12, Estimated GFR > 60, BUN/Creatinine Ratio 28.9 H, Ammonia < 9 L, Triglycerides 68, Cholesterol 171, LDL Cholesterol, Calc 104, HDL Cholesterol 54 , Cholesterol/HDL Ratio 3, Valproic Acid Cancelled Microbiology 04/26 1230 URINE ROUT: Legionella Antigen - COMP 04/26 1230 URINE ROUT: Streptococcus pneumoniae Antigen (M - COMP Lines/Diet/Fluids Restraints: sitter Assessment/Plan Assessment: This is 60-year-old male with past medical history of Alzheimer dementia, depression admitted with chief complaint of cough and congestion with significant confusion. Patient's is the care provider who was admitted to the hospital and patient cannot take care of himself. #1. Acute bronchitis IV steroids switched to by mouth 40 mg prednisone daily. #2. Depression/ not alert oriented Continue home dosage of trazodone 50 mg every afternoon when necessary, continue Zyprexa 25 mg at bedtime, continue divalproex thousand milligram at bedtime, continue trazodone twice a day when necessary as needed for agitation. #3 Alzheimer's dementia. Continue thiamine 100 mg by mouth daily. Continue memantine 10 mg twice a day. Continue folic acid 1 mg daily. #4 insomnia. Continue melatonin 5 mg at the time DVT prophylaxis ;Lovenox With patient is full code. Not in any significant pain, continue mild pain management with Tylenol. Problem List: 1. Bronchitis 2. Dementia Pain Ratin Pain Location: na Pain Goal: Remain pain free Pain Plan: mild pp tylenol Tomorrow's Labs & Rationales: not needed MONIKA BRANHAM MD 04/27/16 1254: Attending MD Review Statement Attending Statement Attending MD Statement: examined this patient, discuss w/resident/PA/APPLICATIONS ENGINEER MANUFACTURING, agreed w/resident/PA/APPLICATIONS ENGINEER MANUFACTURING, reviewed EMR data (avail), discussed with nursing, discussed with case mgmt, amended to note Attending Assessment/Plan: Patient seen and examined, not able to communicate well secondary to having advanced dementia. Denies any complaints. Vital signs are stable. Patient is admitted with acute bronchitis. Currently not requiring any oxygen. Will continue the prednisone taper. Continue all other home medications. DVT prophylaxis: Lovenox. Disposition: not clear yet.
--- NOTE | 2016-04-27 13:53 | Cons- Psychiatry ---
Psychiatric Consult Date of Consult: 04/27/16 Reason for Consult: "Depression, hallucination" History of Present Illness: 60-year-old male, who lives at home with his , was brought to the hospital when she was admitted, as he is unable to care for himself at home. He has been treated for bronchitis. Allergies: Coded Allergies: lithium (SEIZURE 04/25/16) Past History Past Medical History Neurological: Alzheimer's disease, dementia EENT: NONE Cardiovascular: NONE Respiratory: CONGESTED Gastrointestinal: NONE Hepatic: NONE Renal: NONE Musculoskeletal: NONE Psychiatric: PAST USE OF ALCOHOLISM WITH KORSAKOFF SYNDROME NO LONGER ALCOHOLIC Endocrine: NONE Blood Disorders: NONE Cancer(s): NONE MARKETING STRATEGY LEAD/Reproductive: NONE Past Surgical History Surgical History: ROTATOR CUFF SURGERY EYE SURGERY Assessment/Plan Mental Status Mental Status Exam: I visited the patient today, 04/27/2016, at 1035, in room 230-2. The 1:[address]. The patient is lying in bed, pulling at his Depends, but is redirectable. He is oriented to name, but otherwise confused. When asked where he is, he states, "all different places." He had first endorses auditory and visual hallucinations, but then denies both. He does not have a history of responding to internal stimuli in our outpatient psychiatry clinic, however, his , has reported that he at times has indicated other people in the room. Asked if he feels if his thoughts are disorganized, he responds, "no, I'm always Antonio." He reports that he feels safe here in the hospital. The patient is restless, however, a brief movement survey reveals mild tremor, with no rigidity or cogwheeling. The patient's gait was not observed. Lab Results: Laboratory Tests 04/26/16 1149: Triglycerides Cancelled, Cholesterol Cancelled, LDL Cholesterol, Calc Cancelled, HDL Cholesterol Cancelled, Cholesterol/HDL Ratio Cancelled, Valproic Acid 36.6 L 04/26/16 1149: Anion Gap 12, Estimated GFR > 60, BUN/Creatinine Ratio 28.9 H, Ammonia < 9 L, Triglycerides 68, Cholesterol 171, LDL Cholesterol, Calc 104, HDL Cholesterol 54 , Cholesterol/HDL Ratio 3, Valproic Acid Cancelled 04/26/16 0125: Urinalysis LIGHT H, Urine Color YEL, Urine Clarity CLEAR, Urine pH 6.5, Ur Specific Dougherty 1.015, Urine Protein TRACE H, Urine Ketones TRACE H, Urine Nitrite NEG, Urine Bilirubin NEG, Urine Urobilinogen 1.0, Ur Leukocyte Esterase NEG, Ur Microscopic SEDIMENT EXAMINED, Urine RBC 1-3, Ur Epithelial Cells FEW, Urine Mucus MOD H, Urine Hemoglobin TRACE-LYSED H, Urine Glucose NEG 04/25/162142: Anion Gap 12, Estimated GFR > 60, BUN/Creatinine Ratio 30.0 H, Glucose 86, Calcium 9.4, Total Bilirubin 0.5, AST 35, ALT 34, Alkaline Phosphatase 70, Troponin I < 0.01, Total Protein 7.6, Albumin 4.2, Globulin 3.4, Albumin/ Globulin Ratio 1.2, D-Dimer 431 H, CBC w Diff NO MAN DIFF REQ, RBC 4.31 L, MCV 93.8, MCH 31.6 H, RDW 13.7, MPV 8.6, Gran % 58.8, Lymphocytes % 25.3, Monocytes % 14.7 H, Eosinophils % 0.6, Basophils % 0.6, Absolute Granulocytes 4.1, Absolute Lymphocytes 1.8, Absolute Monocytes 1.0 H, Absolute Eosinophils 0, Absolute Basophils 0, PUBS MCHC 33.7 04/25/162020: Troponin I Cancelled Microbiology 04/26 1230 URINE ROUT: Legionella Antigen - COMP 04/26 1230 URINE ROUT: Streptococcus pneumoniae Antigen (M - COMP 04/26 410 LOWER RESP: Respiratory Culture - COLB 04/26 410 LOWER RESP: Gram Stain - COLB 04/25 2142 BLOOD: Blood Culture - RES 04/25 2136 BLOOD: Blood Culture - RES Diffential Diagnosis: From outpatient psychiatry treatment note of 04/14/2015: Unspecified Depression 311 (F32.9) Unspecified Neurocognitive Disorder 799.59 (R41.9) Suspect Wernicke Korsakoff Alcohol use disorder severe in remission x 2 year 303.90 (F10.20) r/o PTSD Impression: Juan is 60-year-old male who is here as a social admission, since his conservatory and caregiver, his , has been admitted to the hospital. Per discussion with the patient's medical collector at [facility] outpatient psychiatry, Gladys Alvarado APRN, the patient's mentation/cognitive ability waxes and wanes. He will have moments of lucidity, followed by inability to respond to questions, and sometimes inappropriately arising to leave and interview. We had referred him to [facility] for evaluation, and they have suggested that changes in the patient's gait might represent extrapyramidal syndrome, possibly induced by olanzapine. Their recommendation was to decrease olanzapine, which the patient's medical collector is in the process of effecting. An eventual reasonable target dosing for olanzapine may be 20 mg. Given that the patient may be somewhat distressed by being in the hospital, we feel that maintaining his current dosing at olanzapine 25 mg by mouth at bedtime is reasonable. The patient's Depakote is subtherapeutic at 36.6 on 04/26/2016, so we suggest maintaining current Depakote dosing of 1000 mg by mouth in the evening. I have ordered a follow-up valproic acid level for 04/29/2016 at 0800. The medication claim history shows lithium dispensed on 03/11/2016 per order of Rebecca Hubbard. It is also now listed as an allergy. Provisional Treatment Plan: 1. Continue the following home medications: a. Divalproex sodium ER 1000 mg PO at bedtime b. Escitalopram 20 mg by mouth daily c. Memantine 10 mg PO 2 times per day d. Olanzapine 25 mg by mouth at bedtime e. Trazodone 50 mg by mouth at bedtime as needed for insomnia f. Trazodone 25 mg PO up to twice daily as needed for anxiety or agitation 2. Valproic acid/divalproex/Depakote level has been ordered for Monday morning, 04/29/2016. Please advise me of this level. 3. The patient will likely require a sitter or equipment monitor phototypesetting for unsafe ambulation, but is not suicidal. 4. Please avoid delirium triggers, and cluster nursing interventions at night, to allow the patient to sleep as much as possible. We will continue to follow along with you. Thank you for asking us to participate in [facility]. Patricio Mahmood APRN, pager [phone].
[2016-04-27 14:38] VITALS: BP 146/92
[2016-04-27 22:15] VITALS: BP 138/84
--- NOTE | 2016-04-28 06:41 | PN- Housestaff ---
BIBI SANDOVAL 04/28/16 0641: Subjective Follow-up For: Alzheimer dementia Bronchitis Subjective: Seen and examined the patient today morning, not alert orientated, lying in bed, not answering questions. Review of Systems Constitutional: Reports: see HPI. Objective Last 24 Hrs of Vital Signs/I&O Vital Signs Date Time Temp Pulse Resp B/P Pulse O2 O2 Flow FiO2 Ox Delivery Rate 04/27 2215 97.3 56 18 138/84 91 Room Air 04/27 1438 97.9 82 20 146/92 91 04/27 0800 80 04/27 0716 97.6 48 18 120/80 92 Intake & Output 04/28 0800 04/28 0000 04/27 1600 Intake Total 10 240 550 Output Total 425 300 Balance 10 -185 250 Intake, IV 10 Intake, Oral 240 550 Output, Urine 425 300 Physical Exam General Appearance: not alert and oriented Skin: No Rashes, No Breakdown HEENT: Atraumatic, PERRLA, EOMI Neck: Supple, No JVD Cardiovascular: Regular Rate, Normal S1, Normal S2, No Murmurs Lungs: Clear to Auscultation, Normal Air Movement Abdomen: Normal Bowel Sounds, Soft, No Tenderness Neurological: Strength at 5/5 X4 Ext, Normal Tone, Sensation Intact Extremities: No Clubbing, No Cyanosis, No Edema, Normal Pulses Vascular: Normal Pulses Current Medications: Current Medications Sig/Lisa Start time Last Medication Dose Route Stop Time Status Admin Acetaminophen 325 MG Q6 PRN 04/26 0015 PO Divalproex Sodium 1,000 MG AT BEDTIME 04/26 2200 04/27 PO 2254 Enoxaparin Sodium 40 MG DAILY 04/26 1000 04/27 UT 0914 Escitalopram Oxalate 20 MG DAILY 04/26 1000 AC 04/27 PO 0914 Folic Acid 1 MG DAILY 04/26 1000 AC 04/27 PO 0914 Insulin Aspart 4 UNITS .STK-MED ONE 04/27 2105 [facility] 04/27 210 Melatonin 5 MG AT BEDTIME NEED.. 04/26 0015 PO Memantine 10 MG BID 04/26 1000 AC 04/27 PO 2254 Nystatin 1 CELINA TID 04/26 1121 04/27 TOP 2254 Olanzapine 2.5 MG ONCE ONE 04/27 1900 DC 04/27 IM 04/27 1901 1936 Olanzapine 25 MG AT BEDTIME 04/26 2200 AC 04/27 PO 2253 Prednisone 40 MG DAILY 04/26 1005 AC 04/27 PO 0914 Thiamine HCl 100 MG DAILY 04/26 1000 AC 04/27 PO 0913 Trazodone HCl 50 MG QPM PRN 04/26 2200 AC PO Trazodone HCl 25 MG BID PRN 04/26 1100 AC 04/27 PO 0913 Lines/Diet/Fluids Restraints: none Assessment/Plan Assessment: This is 60-year-old male with past medical history of Alzheimer dementia, depression admitted with chief complaint of cough and congestion with significant confusion. Patient's is the care provider who was admitted to the hospital and patient cannot take care of himself. #1. Acute bronchitis IV steroids switched to by mouth 40 mg prednisone daily, was tapered to 30 mg today. We will continue with a 3 day taper. #2. Depression/ not alert oriented Continue home dosage of trazodone 50 mg every afternoon when necessary, continue Zyprexa 25 mg at bedtime, continue divalproex thousand milligram at bedtime, continue trazodone twice a day when necessary as needed for agitation. #3 Alzheimer's dementia. Continue thiamine 100 mg by mouth daily. Continue memantine 10 mg twice a day. Continue folic acid 1 mg daily. #4 insomnia. Continue melatonin 5 mg at the time DVT prophylaxis ;Lovenox patient is full code. Problem List: 1. Bronchitis 2. Dementia Pain Ratin Pain Location: na Pain Goal: Remain pain free Pain Plan: tylenol Tomorrow's Labs & Rationales: stable Discharge Plan Discharge Disposition: unclear Stable for Discharge? Yes Anticipated Discharge (Day): two days YONAS FRANCIS,[facility] 04/28/16 1124: Attending MD Review Statement Attending Statement Attending MD Statement: examined this patient, discuss w/resident/PA/DIVERSIONAL THERAPIST'S ASSISTANT, agreed w/resident/PA/DIVERSIONAL THERAPIST'S ASSISTANT, reviewed EMR data (avail), discussed with nursing, discussed with case mgmt, reviewed images, amended to note Attending Assessment/Plan: Patient seen and examined, not able to communicate secondary to having advanced dementia and history of Korsakoff. Patient otherwise denies any complain. He is treated for acute bronchitis. His steroids can definitely be tapered down to 30 mg for 2 days and then 20 for 2 days and then 10 for 2 days and then stop. Continue the rest of his medications. He is on Lovenox for DVT prophylaxis. His disposition is not yet clear. Would encourage nursing staff to ambulate the patient.
[2016-04-28 07:39] VITALS: BP 130/90
[2016-04-28 14:51] VITALS: BP 132/80
[2016-04-28 22:47] VITALS: BP 140/80
--- NOTE | 2016-04-28 23:42 | Discharge Summary ---
Visit Information Visit Dates Admission Date: 04/25/16 Discharge Date: 05/05/16 Hospital Course Course Attending Physician: MONIKA BRANHAM MD [facility]: This is a 60-year-old male with past medical history of Alzheimer's, depression, was brought into the emergency department by ambulance for chief complaint of cough and congestion associated with productive sputum 2-3 days prior to admission.At the emergency department his saturations dropped to 88% on room air. Vitals at admission temperature of 99.6, pulse 66, respiration of 18, blood pressure of 104/62, his saturations improved after putting on nasal cannula oxygen. Labs showed H&H of 13.6/40.4, troponins were negative, creatinine was 1.1 ( baseline 0.7). EKG showed normal sinus rhythm, 96 bpm, QTC of 410. CTA chest was done secondary to the the hypoxia which was negative for any PE. Chest x-ray was negative for any acute disease. On presentation patient was alert however not oriented to time place and person was actively hallucinating, a sitter was placed. His chest x-ray clear, however he was coughing, CVS S1-S2 present no murmur, per her abdominal nontender, bowel sounds present. Extremities no edema, pulses intact. He was admitted to the general medicine floor for the treatment of following problem. Problem #1 acute bronchitis. * Patient was found to have productive cough, there was no evidence of pneumonia on chest x-ray, no signs of infections, CT was negative for pulmonary emboli. * He was admitted to general medicine floor, TRC nebulizations when necessary, rapid flu was negative, received 1 dose of IV ceftriaxone and azithromycin while in the emergency department, however secondary to absent signs of pneumonia or any infection, this was thought to be acute bronchitis and he was treated off antibiotics. * Blood and sputum cultures were found to be negative. * She was also started on a steroid taper, which was started at 40 mg, reduced to 30 for 2 days, 20 for 2 days and 10 for 2 more days. Problem #2 depression/Alzheimer's/insomnia * He was continued on his home medication of trazodone 50 mg every afternoon necessary, zyprexa 25 mg at bedtime, divalproex 1000mg at bedtime, in addition to that he was also given trazodone twice a day when necessary for agitation. * During hopstial course, occasionally he was confused and hallucinating therefore a sitter was placed on several occasions during the entire hospital course. * For his enzyme as he was continued on Timentin 100 mg by mouth daily, memantine 10 mg daily and folic acid 1 mg daily. * He was given melatonin at bedtime for insomnia. Full code. DVT prophylaxis was given with Lovenox. Pain management was done with Tylenol during the hospital course. Allergies: Coded Allergies: lithium (SEIZURE 04/25/16) Significant Procedures: SERVICE DATE: 04/25/16 EXAM TYPE: RAD - XRY-CHEST XRAY, PA AND LATERAL EXAMINATION: XR CHEST CLINICAL INFORMATION: 60-year-old male with dyspnea. COMPARISON: None. TECHNIQUE: PA and lateral views of the chest were obtained. FINDINGS: The heart is normal in size. Pulmonary vascularity is within normal limits. No pleural effusion is seen. Although the lungs are not optimally expanded, there is no definite acute pulmonary parenchymal disease. IMPRESSION: No acute disease. SERVICE DATE: 04/25/16 EXAM TYPE: CAT - CTA CHEST-PULMONARY EMBOLISM EXAMINATION: CT ANGIOGRAM OF THE CHEST WITH AND WITHOUT CONTRAST (CT PULMONARY ANGIOGRAM FOR PE) CLINICAL INFORMATION: Dyspnea. Positive d-dimer. COMPARISON: No pertinent prior studies are available for comparison. TECHNIQUE: Prior to contrast administration, noncontrast localization images were obtained. Subsequently, multidetector volumetric imaging was performed from the thoracic inlet to below the diaphragms following the administration of 95 mL Omnipaque 350 intravenous contrast. No adverse contrast reaction reported. Sagittal, coronal, and MIP oblique sagittal reformatted images were obtained on the CT workstation, uploaded to PACS, and reviewed. Total exam dose-length product 585 mGy-cm FINDINGS: QUALITY OF STUDY/CONTRAST BOLUS: Adequate contrast opacification of the pulmonary arterial vasculature. PULMONARY ARTERIES: No evidence of pulmonary embolism to the level of the segmental pulmonary arteries. Limited evaluation of the subsegmental pulmonary arteries secondary to respiratory motion artifact, notably within the bilateral lung bases. No large central pulmonary emboli. THORACIC AORTA: No aneurysm or dissection. LUNG: Evaluation of the lung parenchyma is notable for moderate centrilobular emphysematous changes within the bilateral upper lobes. There is scarring versus atelectasis within the lingula and right middle lobe. No suspicious pulmonary nodules or masses are identified and there is no focal airspace consolidation to suggest infection. The central airways are patent, without endobronchial obstructing lesions. PLEURA: No pleural effusion or pneumothorax. MEDIASTINUM: Normal heart size. No pericardial effusion. No hilar or mediastinal lymphadenopathy. No evidence of septal bowing or right heart strain. CHEST WALL/AXILLA: No axillary or internal mammary lymphadenopathy. OSSEOUS STRUCTURES: No acute or suspicious osseous abnormality. UPPER ABDOMEN: Unremarkable. No reflux of contrast into the hepatic veins to suggest elevated right heart pressures. IMPRESSION: Adequate contrast opacification of the pulmonary arterial vasculature, without evidence of pulmonary embolism to the level of the segmental pulmonary arteries. Evaluation of the subsegmental pulmonary arteries is limited secondary to diffuse respiratory motion abnormality, which degrades image quality. If clinical concern for pulmonary embolism persists, consider correlation with a VQ scan or bilateral lower extremity Doppler ultrasounds. VTE: indeterminate. Disposition Summary Disposition Principal Diagnosis: #1. Acute bronchitis #2. Depression/ not alert oriented Additional Diagnosis: #3 Alzheimer's dementia. #4 insomnia. Discharge Disposition: SNF Discharge Instructions General Discharge Information Code Status: Full Code Patient's Diet: regular Patient's Activity: as tolerated Follow-Up Instructions/Appts: PLEASE FOLLOW UP WITH YOUR PCP WITHIN ONE WEEK OF DISCHARGE. Medications at Discharge Discharge Medications: Stop taking the following medications: Thiamine HCl (B-1) (Unknown Strength) TABLET ORAL DAILY Continue taking these medications: Olanzapine (Olanzapine) 10 MG TABLET 20 Milligram ORAL DAILY Qty = 180 Comments: PER PT Divalproex Sodium (Divalproex Sodium ER) 500 MG TAB.ER.24H 1,000 Milligram ORAL 5 PM Qty = 30 Comments: PER PT Memantine HCl (Namenda) 10 MG TABLET 1 Tablet ORAL TWICE DAILY Qty = 180 Comments: PER PT Melatonin (Melatonin) 10 MG CAPSULE 1 Capsule ORAL Every night Comments: PER PT Trazodone HCl (Trazodone HCl) 50 MG TABLET 1 Tablet ORAL Every night Comments: PER PT Escitalopram Oxalate (Escitalopram Oxalate) 20 MG TABLET 1 Tablet ORAL DAILY Qty = 90 Comments: PER PT Folic Acid (Folic Acid) 1 MG TABLET 1 Tablet ORAL DAILY Qty = 90 Comments: PER PT Start taking the following new medications: Thiamine HCl (Vitamin B-1) 100 MG TABLET 1 Tablet ORAL DAILY Days = 60 No Refills Copies To: PAMELA RIZZO DO Attending MD Review Statement Documenting Attending: YONAS FRANCIS,MONIKA
[2016-04-29 07:12] VITALS: BP 140/80
[2016-04-29 07:59] LABS: ABSOLUTE BASOPHIL COUNT 0 /CUMM (0.0-0.2); ABSOLUTE EOSINOPHIL COUNT 0 /CUMM (0.0-0.7); ABSOLUTE GRANULOCYTE CT 3.9 /CUMM (1.4-6.5); ABSOLUTE LYMPH COUNT 2.9 /CUMM (1.2-3.4); ABSOLUTE MONOCYTE COUNT 0.8 /CUMM (0.10-0.60); BASOPHIL % 0.5 % (0.0-2.0); EOSINOPHIL % 0.3 % (0-5); HEMATOCRIT 43.9 % (42-52); MEAN CORPUSCULAR HGB 31.7 PG (27.0-31.0); MEAN CORPUSCULAR HGB CONC 33.8 G/DL (33.0-37.0); MEAN CORPUSCULAR VOLUME 93.9 FL (80.0-94.0); MEAN PLATELET VOLUME 9.5 FL (7.4-10.4); PLATELET COUNT 198 /CUMM (130-400); RBC DISTRIBUTION WIDTH 13.4 % (11.5-14.5); RED BLOOD CELL CT 4.67 /CUMM (4.70-6.10); WHITE BLOOD CELL COUNT 7.7 /CUMM (4.8-10.8)
--- NOTE | 2016-04-29 07:59 | PN- Housestaff ---
BIBI SANDOVAL 04/29/16 0759: Subjective Follow-up For: BRONCHITIS ALZHEIMERS Complaints: no complaints Review of Systems Constitutional: Reports: see HPI. Objective Last 24 Hrs of Vital Signs/I&O Vital Signs Date Time Temp Pulse Resp B/P Pulse O2 O2 Flow FiO2 Ox Delivery Rate 04/29 1446 97.6 89 18 112/80 93 Room Air 04/29 0712 97.6 52 19 140/80 98 Room Air 04/28 2247 97.8 60 19 140/80 93 Room Air Intake & Output 04/29 1600 04/29 0800 04/29 0000 Intake Total 1800 500 Output Total Balance 1800 500 Intake, Oral 1800 500 Physical Exam General Appearance: Alert, Oriented X3, Cooperative, No Acute Distress Skin: No Rashes, No Breakdown, No Significant Lesion HEENT: Atraumatic, PERRLA, EOMI Neck: Supple, No JVD, No thryomegaly Lymphatic: no lad Cardiovascular: Normal S1, Normal S2, No Murmurs Lungs: Clear to Auscultation, Normal Air Movement Abdomen: Normal Bowel Sounds, Soft, No Tenderness Extremities: No Clubbing, No Cyanosis, No Edema, Normal Pulses Vascular: Normal Pulses Current Medications: Current Medications Sig/Lisa Start time Last Medication Dose Route Stop Time Status Admin Acetaminophen 325 MG Q6 PRN 04/265 AC PO Divalproex Sodium 1,000 MG AT BEDTIME 04/26 2199 AC 04/28 PO 2200 Enoxaparin Sodium 40 MG DAILY 04/26 1000 AC 04/29 SC 0845 Escitalopram Oxalate 20 MG DAILY 04/26 1000 AC 04/29 PO 0844 Folic Acid 1 MG DAILY 04/26 1000 AC 04/29 PO 0844 Melatonin 5 MG AT BEDTIME NEED.. 04/26 0015 AC PO Memantine 10 MG BID 04/26 1000 AC 04/29 PO 0846 Nystatin 1 CLEINA TID 04/26 1121 AC 04/29 TOP 1654 Olanzapine 25 MG AT BEDTIME 04/26 2199 AC 04/28 PO 2159 Prednisone 30 MG DAILY 04/29 1000 AC 04/29 PO 0844 Thiamine HCl 100 MG DAILY 04/26 1000 AC 04/29 PO 0845 Trazodone HCl 25 MG ONCE ONE 04/29 1400 DC 04/29 PO 04/29 1401 1429 Trazodone HCl 50 MG QPM PRN 04/26 2199 AC 04/29 PO 0050 Trazodone HCl 25 MG BID PRN 04/26 1100 AC 04/29 PO 0927 Last 24 Hrs of Lab/Rolando Results Last 24 Hrs of Labs/Mics: Laboratory Tests 04/29/16 0600: Valproic Acid 62.1 04/29/16 0600: Anion Gap 15, Estimated GFR > 60, BUN/Creatinine Ratio 25.7 H, CBC w Diff NO MAN DIFF REQ, RBC 4.67 L, MCV 93.9, MCH 31.7 H, RDW 13.4, MPV 9.5, Gran % 51.0 , Lymphocytes % 38.2, Monocytes % 10.0 H, Eosinophils % 0.3, Basophils % 0.5, Absolute Granulocytes 3.9, Absolute Lymphocytes 2.9, Absolute Monocytes 0.8 H, Absolute Eosinophils 0, Absolute Basophils 0, PUBS MCHC 33.8, Valproic Acid Cancelled Lines/Diet/Fluids Restraints: none Assessment/Plan Assessment: This is 60-year-old male with past medical history of Alzheimer dementia, depression admitted with chief complaint of cough and congestion with significant confusion. Patient's is the care provider who was admitted to the hospital and patient cannot take care of himself. #1. Acute bronchitis Continue 30 mg steroid #2. Depression/ not alert oriented Continue home dosage of trazodone 50 mg every afternoon when necessary, continue Zyprexa 25 mg at bedtime, continue divalproex thousand milligram at bedtime, continue trazodone twice a day when necessary as needed for agitation. #3 Alzheimer's dementia. Continue thiamine 100 mg by mouth daily. Continue memantine 10 mg twice a day. Continue folic acid 1 mg daily. #4 insomnia. Continue melatonin 5 mg at the time DVT prophylaxis ;Lovenox patient is full code. Problem List: 1. Bronchitis 2. Dementia Pain Ratin Pain Location: NA Pain Goal: Remain pain free Pain Plan: tylenol Tomorrow's Labs & Rationales: not needed MONIKA BRANHAM MD 04/29/16 1019: Attending MD Review Statement Attending Statement Attending MD Statement: examined this patient, discuss w/resident/PA/WALL WORKER, agreed w/resident/PA/WALL WORKER, reviewed EMR data (avail), discussed with nursing, discussed with case mgmt, amended to note Attending Assessment/Plan: Patient seen and examined, has advanced dementia therefore not able to communicate well. But overall denies any complaints. vss. On exam; patient has a sitter as he tried to get out of bed constantly. cv; s1,s2, rrr. resp; clear abd; soft, nt, bs+ ext; no edema. Laboratory Tests 04/29 04/29 0600 0600 Chemistry Sodium (137 - 145 mmol/L) 142 Potassium (3.5 - 5.1 mmol/L) 4.1 Chloride (98 - 107 mmol/L) 99 Carbon Dioxide (22 - 30 mmol/L) 27 Anion Gap (5 - 16) 15 BUN (9 - 20 mg/dL) 18 Creatinine (0.7 - 1.2 mg/dL) 0.7 Estimated GFR (>60 ml/min) > 60 BUN/Creatinine Ratio (7 - 25 %) 25.7 H Hematology CBC w Diff NO MAN DIFF REQ WBC (4.8 - 10.8 /CUMM) 7.7 RBC (4.70 - 6.10 /CUMM) 4.67 L Hgb (14.0 - 18.0 G/DL) 14.8 Hct (42 - 52 %) 43.9 MCV (80.0 - 94.0 FL) 93.9 MCH (27.0 - 31.0 PG) 31.7 H RDW (11.5 - 14.5 %) 13.4 Plt Count (130 - 400 /CUMM) 198 MPV (7.4 - 10.4 FL) 9.5 Gran % (42.2 - 75.2 %) 51.0 Lymphocytes % (20.5 - 51.1 %) 38.2 Monocytes % (1.7 - 9.3 %) 10.0 H Eosinophils % (0 - 5 %) 0.3 Basophils % (0.0 - 2.0 %) 0.5 Absolute Granulocytes (1.4 - 6.5 /CUMM) 3.9 Absolute Lymphocytes (1.2 - 3.4 /CUMM) 2.9 Absolute Monocytes (0.10 - 0.60 /CUMM) 0.8 H Absolute Eosinophils (0.0 - 0.7 /CUMM) 0 Absolute Basophils (0.0 - 0.2 /CUMM) 0 PUBS MCHC (33.0 - 37.0 G/DL) 33.8 Toxicology Valproic Acid (50 - 120 ug/mL) 62.1 Cancelled A/P; 60-year-old male with history significant for advanced dementia, 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 Continue Q2 days pred taper by 10 mg till finished. Continue all hanna Psych meds per home regimen. DVT Px; Lovenox. Dispo; await placement.
[2016-04-29 14:46] VITALS: BP 112/80
--- NOTE | 2016-04-29 19:48 | NUR ---
PER [facility]ST, PT REMOVED IV. NO BLOOD OR DISCOOMFORT NOTED. DR. ALMANZAR AWARE AND OK WITH NO IV ACCESS FOR NOW.
[2016-04-29 22:12] VITALS: BP 160/100
[2016-04-29 22:18] VITALS: BP 140/92
[2016-04-30 06:15] VITALS: BP 132/78
--- NOTE | 2016-04-30 08:23 | Patient Discharge Instructions ---
Discharge Instructions General Discharge Information You were seen/treated for: BRONCHITIS Special Instructions: PLEASE FOLLOW UP WITH YOUR PCP WITHIN ONE WEEK OF DISCHARGE. Diet Continue normal diet: Yes Recommended Diet: Regular Acute Coronary Syndrome Inclusion Criteria At DC or during hospital stay patient has or had the following: ACS DIAGNOSIS No Discharge Core Measures Meds if any: Prescribed or Continued at Discharge Meds if any: NOT Prescribed or Continued at Discharge Congestive Heart Failure Inclusion Criteria At DC or during hospital stay patient has or had the following: CHF DIAGNOSIS No Discharge Core Measures Meds if any: Prescribed or Continued at Discharge Meds if any: NOT Prescribed or Continued at Discharge Cerebrovascular accident Inclusion Criteria At DC or during hospital stay patient has or had the following: CVA/TIA Diagnosis No Discharge Core Measures Meds if any: Prescribed or Continued at Discharge Meds if any: NOT Prescribed or Continued at Discharge Venous thromboembolism Inclusion Criteria VTE Diagnosis No VTE Type NONE VTE Confirmed by (Test) NONE Discharge Core Measures - Per Current guidelines, there needs to be overlap - treatment for the first 5 days of Warfarin therapy. - If discharged on Warfarin prior to 5 days of - overlap therapy, the patient will need to be - assessed for post discharge needs including - *Post discharge parental anticoagulation - *Warfarin and/or parental anticoagulation education - *Follow up date to check INR post discharge At least 5 days overlap therapy as Inpatient No Meds if any: Prescribed or Continued at Discharge Note: Overlap Therapy is Warfarin and Anticoagulant Meds if any: NOT Prescribed or Continued at Discharge
--- NOTE | 2016-04-30 14:32 | PN- Att Addend ---
Attending Addendum Attending Brief Note Patient seen and examined. Plan of care discussed with the medical team and the patient. Available lab work and radiology test reports were reviewed. No new complaints. Patient is walking around independently. He continues to have a sitter. Vital Signs Date Time Temp Pulse Resp B/P Pulse O2 O2 Flow FiO2 Ox Delivery Rate 04/30 0515 97.6 53 20 132/78 94 Room Air 04/29 2227 140/92 04/29 2218 140/92 04/29 2212 97.4 63 20 160/100 94 Room Air 04/29 1446 97.6 89 18 112/80 93 Room Air Intake & Output 04/30 1600 04/30 0800 04/30 0000 Intake Total 600 0 240 Output Total Balance 600 0 240 Intake, IV 0 Intake, Oral 600 0 240 Number 1 0 Bowel Movements Patient 162 lb Weight Exam: General: Patient awake alert oriented without any distress CVS: S1 plus S2 without any murmur or gallops Chest: Few scattered crepitation without any wheeze. There is no respiratory distress. Abdomen: Soft nontender, bowel sound present, no guarding or rebound CLINICAL EXERCISE PHYSIOLOGIST: Awake alert oriented without any focal neuro deficit and follows command appropriately Extremities: No edema; no clubbing or cyanosis noted No new labs done today. Assessment and problem list * Acute bronchitis * Depression * Alzheimer's dementia * Insomnia Plan * Wait for placement * Continue current management
[2016-04-30 14:58] VITALS: BP 125/72
[2016-04-30 21:50] VITALS: BP 112/76
[2016-05-01 06:18] VITALS: BP 110/70
--- NOTE | 2016-05-01 08:57 | PN- Housestaff ---
Subjective Follow-up For: Bronchitis Alzheimer's Dementia Subjective: No events overnight. No labs drawn today. Patient is sitting comfortably in his chair with no complaints. He does seem confused and is not following commands. Review of Systems Constitutional: Reports: see HPI. Objective Last 24 Hrs of Vital Signs/I&O Vital Signs Date Time Temp Pulse Resp B/P Pulse O2 O2 Flow FiO2 Ox Delivery Rate 05/01 617 96.5 50 20 110/70 96 Room Air 04/30 2150 97.6 84 20 112/76 95 04/30 1458 98.8 98 20 125/72 94 Intake & Output 05/01 1600 05/01 0800 05/01 0000 Intake Total 800 Output Total Balance 800 Intake, Oral 800 Physical Exam General Appearance: Alert, Oriented X3, Cooperative, No Acute Distress Cardiovascular: Regular Rate, Normal S1, Normal S2, No Murmurs Lungs: Clear to Auscultation, Normal Air Movement Abdomen: Normal Bowel Sounds, Soft, No Tenderness Neurological: Normal Speech, Normal Tone, Sensation Intact Extremities: No Edema Lines/Diet/Fluids Lines: peripheral lines Assessment/Plan Assessment: This is 60-year-old male with past medical history of Alzheimer dementia, depression admitted with chief complaint of cough and congestion with significant confusion. Patient's is the care provider who was admitted to the hospital and patient cannot take care of himself. #1. Acute bronchitis Taper to 20 mg Prednisone today. Patient is still awaiting placement. #2. Depression/ not alert oriented Continue home dosage of trazodone 50 mg every afternoon when necessary, continue Zyprexa 25 mg at bedtime, continue divalproex thousand milligram at bedtime, continue trazodone twice a day when necessary as needed for agitation. #3 Alzheimer's dementia. Continue thiamine 100 mg by mouth daily. Continue memantine 10 mg twice a day. Continue folic acid 1 mg daily. #4 insomnia. Continue melatonin 5 mg at the time DVT prophylaxis ;Lovenox patient is full code. Problem List: 1. Bronchitis 2. Dementia Pain Ratin Pain Location: None Pain Goal: Pain 4 or less Pain Plan: Per EMAR Tomorrow's Labs & Rationales: Not needed. DVT/Prophylaxis: pharmacological
--- NOTE | 2016-05-01 13:28 | PN- Att Addend ---
Attending Addendum Attending Brief Note Patient seen and examined. Plan of care discussed with the medical team and the patient. Available lab work and radiology test reports were reviewed. No new complaints. Patient is walking around independently. He continues to have a sitter. Vital Signs Date Time Temp Pulse Resp B/P Pulse O2 O2 Flow FiO2 Ox Delivery Rate 05/01 799 88 05/01 0618 96.5 50 20 110/70 96 Room Air 04/30 2150 97.6 84 20 112/76 95 04/30 1458 98.8 98 20 125/72 94 Intake & Output 05/01 1600 05/01 0000 Intake Total 0 800 Output Total Balance 0 800 Intake, IV 0 Intake, Oral 0 800 Number 0 Bowel Movements Exam: General: Patient awake alert without any distress CVS: S1 plus S2 without any murmur or gallops Chest: Few scattered crepitation without any wheeze. There is no respiratory distress. Abdomen: Soft nontender, bowel sound present, no guarding or rebound DOLLY OPERATOR: Awake alert without any focal neuro deficit and follows command appropriately ; able to walk independently Extremities: No edema; no clubbing or cyanosis noted No new labs done today. Assessment and problem list * Acute bronchitis * Depression * Alzheimer's dementia * Insomnia Plan * Wait for placement * Continue current management
[2016-05-01 15:02] VITALS: BP 145/80
[2016-05-01 22:34] VITALS: BP 138/70
--- NOTE | 2016-05-02 01:31 | NUR ---
PATIENT CONFUSED BUT EASILY REORIENTED. VITAL SIGNS STABLE. ON ROOM AIR NO DISTRESS NOTED. PATIENT RESTING COMFORTABLY AT THIS TIME WILL CONTINUE TO MONITOR
[2016-05-02 07:00] VITALS: BP 168/98
--- NOTE | 2016-05-02 07:47 | PN- Housestaff ---
BIBI SANDOVAL 05/02/16 0747: Subjective Follow-up For: bronchitis alzheimers Complaints: no complaints Subjective: Stable Review of Systems Constitutional: Reports: see HPI. Objective Last 24 Hrs of Vital Signs/I&O Vital Signs Date Time Temp Pulse Resp B/P Pulse O2 O2 Flow FiO2 Ox Delivery Rate 05/02 1423 97.8 77 20 130/82 95 05/02 0940 Room Air Room Air 05/02 0924 Room Air Room Air 05/02 0700 97.4 59 20 168/98 96 05/01 2234 97.8 78 20 138/70 94 Intake & Output 05/02 1600 05/02 0800 05/02 0000 Intake Total 700 0 800 Output Total Balance 700 0 800 Intake, IV 0 Intake, Oral 700 0 800 Number 0 Bowel Movements Physical Exam General Appearance: Alert, Oriented X3, Cooperative, No Acute Distress Skin: No Rashes, No Breakdown HEENT: Atraumatic, PERRLA, EOMI Lymphatic: no lad Cardiovascular: Regular Rate, Normal S1, Normal S2, No Murmurs Lungs: Clear to Auscultation, Normal Air Movement Abdomen: Normal Bowel Sounds, Soft, No Tenderness Neurological: Normal Gait, Normal Speech, Strength at 5/5 X4 Ext, Normal Tone, Sensation Intact Extremities: No Clubbing, No Cyanosis, No Edema, Normal Pulses Vascular: Normal Pulses Current Medications: Current Medications Sig/Lisa Start time Last Medication Dose Route Stop Time Status Admin Acetaminophen 325 MG Q6 PRN 04/26 14 AC PO Divalproex Sodium 1,000 MG AT BEDTIME 04/26 220 AC 05/01 PO 2124 Enoxaparin Sodium 40 MG DAILY 04/26 1000 AC 05/02 SC 1053 Escitalopram Oxalate 20 MG DAILY 04/26 1000 AC 05/02 PO 1052 Folic Acid 1 MG DAILY 04/26 1000 AC 05/02 PO 1051 Melatonin 5 MG .STK-MED ONE 05/01 221 DC PO 05/01 2214 Melatonin 5 MG AT BEDTIME NEED.. 04/26 0015 AC 05/01 PO 2216 Memantine 10 MG BID 04/26 1000 AC 05/02 PO 1052 Nystatin 1 CELINA TID 04/26 1121 AC 05/02 TOP 1637 Olanzapine 25 MG AT BEDTIME 04/26 2200 AC 05/01 PO 2125 Prednisone 20 MG DAILY 05/01 1000 AC 05/02 PO 1051 Thiamine HCl 100 MG DAILY 04/26 1000 AC 05/02 PO 1052 Trazodone HCl 50 MG QPM PRN 04/26 2200 AC 04/29 PO 0050 Trazodone HCl 25 MG BID PRN 04/26 1100 AC 05/02 PO 1307 Lines/Diet/Fluids Restraints: none Assessment/Plan Assessment: This is 60-year-old male with past medical history of Alzheimer dementia, depression admitted with chief complaint of cough and congestion with significant confusion. Patient's is the care provider who was admitted to the hospital and patient cannot take care of himself. #1. Acute bronchitis Taper to 20 mg Prednisone today. Patient is still awaiting placement. #2. Depression/ not alert oriented Continue home dosage of trazodone 50 mg every afternoon when necessary, continue Zyprexa 25 mg at bedtime, continue divalproex thousand milligram at bedtime, continue trazodone twice a day when necessary as needed for agitation. #3 Alzheimer's dementia. Continue thiamine 100 mg by mouth daily. Continue memantine 10 mg twice a day. Continue folic acid 1 mg daily. #4 insomnia. Continue melatonin 5 mg at the time DVT prophylaxis ;Lovenox patient is full code. Problem List: 1. Bronchitis 2. Dementia Pain Ratin Pain Location: na Pain Goal: Remain pain free Pain Plan: tylenol Tomorrow's Labs & Rationales: not needed Discharge Plan Discharge Disposition: home YONAS FRANCIS,[facility] 05/02/16 1247: Attending MD Review Statement Attending Statement Attending MD Statement: examined this patient, discuss w/resident/PA/INDUSTRIAL EDUCATION INSTRUCTOR, agreed w/resident/PA/INDUSTRIAL EDUCATION INSTRUCTOR, reviewed EMR data (avail), discussed with nursing, discussed with case mgmt, amended to note Attending Assessment/Plan: Patient seen and examined, has advanced dementia therefore not able to clinic 8. Still has a sitter. Blood pressure was slightly high this morning but looking at the trend he was running mostly in 130s to 140s. We'll monitor the blood pressure trend. If continues to remain high then he would need an antihypertensive. Patient is currently awaiting placement. Continue all current medications.
[2016-05-02 14:23] VITALS: BP 130/82
[2016-05-02 22:17] VITALS: BP 130/80
[2016-05-03 07:02] VITALS: BP 130/80
--- NOTE | 2016-05-03 07:43 | PN- Housestaff ---
BIBI SANDOVAL 05/03/16 0743: Subjective Follow-up For: bronchitis alzheimers Complaints: no complaints Subjective: i have seen and examined the patient today morning, he is stable, no new complaints ,waiting for placement, vitals stable, afebrile, no new complaints. Review of Systems Constitutional: Reports: see HPI. Objective Last 24 Hrs of Vital Signs/I&O Vital Signs Date Time Temp Pulse Resp B/P Pulse O2 O2 Flow FiO2 Ox Delivery Rate 05/03 0702 97.4 50 19 130/80 93 Room Air 05/02 2217 97.8 60 20 130/80 92 Room Air 05/02 1423 97.8 77 20 130/82 95 05/02 0940 Room Air Room Air 05/02 0924 Room Air Room Air Intake & Output 05/03 0800 05/03 0000 05/02 1600 Intake Total 50 200 700 Output Total Balance 50 200 700 Intake, Oral 50 200 700 Physical Exam General Appearance: Alert, Oriented X3, Cooperative, No Acute Distress Skin: No Rashes, No Breakdown, No Significant Lesion HEENT: Atraumatic, PERRLA, EOMI Neck: Supple, No JVD Lymphatic: no lad Cardiovascular: Regular Rate, Normal S1, Normal S2, No Murmurs Lungs: Clear to Auscultation, Normal Air Movement Abdomen: Normal Bowel Sounds, Soft, No Tenderness Neurological: Normal Speech, Strength at 5/5 X4 Ext, Normal Tone, Sensation Intact, Cranial Nerves 3-12 NL Extremities: No Clubbing, No Cyanosis, No Edema, Normal Pulses Vascular: Normal Pulses Current Medications: Current Medications Sig/Lisa Start time Last Medication Dose Route Stop Time Status Admin Acetaminophen 325 MG Q6 PRN 04/26 001 AC PO Divalproex Sodium 1,000 MG AT BEDTIME 04/26 2200 AC 05/02 PO 2116 Enoxaparin Sodium 40 MG DAILY 04/26 1000 AC 05/02 SC 1053 Escitalopram Oxalate 20 MG DAILY 04/26 1000 AC 05/02 PO 1052 Folic Acid 1 MG DAILY 04/26 1000 AC 05/02 PO 1051 Melatonin 5 MG AT BEDTIME NEED.. 04/26 0015 AC 05/01 PO 2216 Memantine 10 MG BID 04/26 1000 AC 05/02 PO 2117 Nystatin 1 CELINA TID 04/26 1121 AC 05/02 TOP 2117 Olanzapine 25 MG AT BEDTIME 04/26 2200 AC 05/02 PO 2117 Prednisone 20 MG DAILY 05/01 1000 AC 05/02 PO 1051 Thiamine HCl 100 MG DAILY 04/26 1000 AC 05/02 PO 1052 Trazodone HCl 50 MG QPM PRN 04/26 2200 AC 04/29 PO 0050 Trazodone HCl 25 MG BID PRN 04/26 1100 AC 05/02 PO 1307 Lines/Diet/Fluids Restraints: none Assessment/Plan Assessment: This is 60-year-old male with past medical history of Alzheimer dementia, depression admitted with chief complaint of cough and congestion with significant confusion. Patient's is the care provider who was admitted to the hospital and patient cannot take care of himself. #1. Acute bronchitis Taper to 10 mg Prednisone today, continue for 2 more days then stop. Patient is still awaiting placement. #2. Depression/ not alert oriented Continue home dosage of trazodone 50 mg every afternoon when necessary, continue Zyprexa 25 mg at bedtime, continue divalproex thousand milligram at bedtime, continue trazodone twice a day when necessary as needed for agitation. #3 Alzheimer's dementia. Continue thiamine 100 mg by mouth daily. Continue memantine 10 mg twice a day. Continue folic acid 1 mg daily. #4 insomnia. Continue melatonin 5 mg at the time DVT prophylaxis ;Lovenox patient is full code. As patient doesnot have any active issues, and is awaiting placement, we will make him non-teaching today.Will do CMR and discharge summary in anticipation. Problem List: 1. Bronchitis 2. Dementia Pain Ratin Pain Location: na Pain Goal: Remain pain free Pain Plan: tylenol Tomorrow's Labs & Rationales: not needed Discharge Plan Discharge Disposition: STR/NH Stable for Discharge? Yes Anticipated Discharge (Day): unknown If Discharged Today/In 24 Hrs: CMR done MONIKA BRANHAM MD 05/03/16 1146: Attending MD Review Statement Attending Statement Attending Statement: examined this patient, discuss w/resident/PA/MIGRATORY FARM HAND, agreed w/resident/PA/MIGRATORY FARM HAND, reviewed EMR data (avail), discussed with nursing, discussed with case mgmt, reviewed images, amended to note Attending Assessment/Plan: Patient seen and examined, denies any complaints. Not able to communicate when secondary to having advanced dementia. vss, BP remain stabel without any antihypertensive coverage. on exam; awake, nad. cv; s1,s2, rrr. resp; clear b/l abd; soft, nt, bs+ ext; no edema. no labs. 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 Please tapered prednisone to 10 mg by mouth daily 2 days then stop. Blood pressure remained stable without any medications. Continue all other current meds. DVT prophylaxis: Lovenox. Patient is awaiting placement.
[2016-05-03 14:28] VITALS: BP 134/80
--- NOTE | 2016-05-03 15:18 | PN- Psychiatry ---
Assessment/Plan Impression: Identifying Info: Juan Mack is a 60-year-old male presented to the emergency department with his who is his air plant engineer on 04/26/16, she was hospitalized for pneumonia and he was subsequently admitted with bronchitis. He cannot care for himself at home. SUBJECTIVE Patient is unable to participate in interview in meaningful way due to cognitive deficits OBJECTIVE Mental Status Exam Presentation/Appearance: Cooperative with evaluation. Hospital garb. Briefly interviewed while walking on unit. Orientation: Oriented to self only Sensorium: Awake and alert Eye contact: Appropriate Affect: Blunted Mood: Euthymic Depression: Denies Anxiety: Denies Thought Content: - Denies SI/HI, AH/VH, PI. States and also believes they will not kill themselves. Thought Process: Poverty of content Speech: Repetitive, patient often repeats himself, Language: Korean, fluent Judgment: Poor Insight: Poor Cognition: Memory: Severe deficits Attention/Concentration: Severe deficits MMSE: (Did not assess at this visit) Brief ROS Gait: Steady Sleep: Per report adequate Appetite: Adequate Spoke to who reports patient usually takes psychotropic bedtime meds at 5 PM which typically controls agitation and irritability well. Per her report he will be going to [facility] with her and discharge to a shared room. Per nursing report patient required when necessary trazodone yesterday for aggiation. ASSESSMENT 60-year-old male with profound cognitive deficits. At present his agitation is relatively well controlled. Differential diagnosis Unspecified Depression (F32.9) Unspecified Neurocognitive Disorder (R41.9) suspect Wernicke Korsakoff Alcohol use disorder, severe, in sustained remission (F10.20) r/o PTSD Suggestion: 1. Continue sitter. 2. Consider moving daily at bedtime meds to 17:00 as this is when the patient typically takes them at home. He may experience decreased behavioral difficulties if rescheduled. 3. Continue psychotropic medications. 4. Agree with plan to discharge to shared room at rehab with . 5. Patient to follow-up post rehabilitation discharge with outpatient psychiatric provider Gladys Alvarado APRN of [facility] outpatient services. Thank you for including psychiatry in this case we'll continue to follow. Dick Lane APRN, pager [phone] Subjective Subjective: .
[2016-05-03 22:00] VITALS: BP 112/82
[2016-05-04 06:51] VITALS: BP 130/80
--- NOTE | 2016-05-04 10:43 | PN- Att Addend ---
Attending Addendum Attending Brief Note Patient seen and examined, not able to communicate in secondary to having advanced dementia. Patient has set her due to safety purposes. Vital Signs Date Time Temp Pulse Resp B/P Pulse O2 O2 Flow FiO2 Ox Delivery Rate 05/04 0651 97.5 62 20 130/80 94 Room Air 05/03 2200 97.7 58 18 112/82 90 05/03 1428 97.3 83 19 134/80 92 Room Air on exam; aox3, nad. cv; s1,s2, rrr. resp; clear b/l abd; soft, nt, bs+ ext; no edema. no labs. 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 Will prednisone to 10 mg by mouth daily 2 days then stop. Blood pressure remained stable without any medications. Psych meds timings changed as per psych recommendations. Continue all other current meds. DVT prophylaxis: Lovenox. Patient is awaiting placement to rehab.
[2016-05-04 20:26] VITALS: BP 120/68
[2016-05-04 21:48] VITALS: BP 128/78
[2016-05-05 06:04] VITALS: BP 150/90
--- NOTE | 2016-05-05 10:50 | PN- Att Addend ---
Attending Addendum Attending Brief Note Patient seen and examined, he is unable to communicate secondary to having advanced dementia. Otherwise no acute issues. 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 Vital Signs Date Time Temp Pulse Resp B/P Pulse O2 O2 Flow FiO2 Ox Delivery Rate 05/05 0604 97.6 59 20 150/90 91 Room Air 05/04 2254 94 Room Air 05/04 2148 97.2 66 18 128/78 90 Room Air 05/04 2025 98.0 68 20 120/68 92 Room Air on exam; awake, nad. cv; s1,s2, rrr. resp; clear abd; soft, nt, bs+ ext; no edema. no labs. 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 Currently improved from bronchitis. Has been kept on his home medications. Is awaiting placement in a rehabilitation facility. If there is a bed available, patient can likely be discharged to rehabilitation today.
[2016-05-05] MEDS ORDERED: VITAMIN B-1100 MG PO (11:03)
[2016-05-05 13:53] VITALS: BP 120/80
[2016-05-05 16:09] VITALS: BP 120/80
== END 2016-05-05 17:10 | DRG 144 ==
LOC: ERH 20:04 → 2NA 21:53 → ERHI 21:53 → 2NA 04-26 02:25
PROVIDERS: Internal Medicine; Pediatrics; ADMIT Internal Medicine
DX: J20.9 Acute bronchitis, unspecified (principal); F03.90 Unspecified dementia, unspecified severity, without behavioral disturbance, psychotic disturbance, mood disturbance, and anxiety; F04 Amnestic disorder due to known physiological condition; F32.9 Major depressive disorder, single episode, unspecified; G47.00 Insomnia, unspecified
CPT/HCPCS: 2NASP; ERO; 81001; 82436; 87040; 87070; 87449; 87450; 87804; 87804-59; 93005; 93010; 96361; 96374; 97001-GP; 97116-GO; 97161-GP; 97530-GO; 99232; J0456; J0696; J1650; J1815; J2920; J3490; J7040; J7512; Q2036

== ENCOUNTER 2016-05-30 14:04 | Inpatient (IN) | payer OTHER ==
[~2016-05-30] VITALS: Ht 162.6 cm; Wt 90.7 kg
[~2016-05-30 14:04] MED LIST: B-1100 MG PO; DIVALPROEX SOD500 M3 PO; ESCITALOPRAM OX20 MG PO; FOLIC ACID1 M1 PO; MELATONIN10 M5 PO; NAMENDA10 M2 PO; OLANZAPINE10 M1 PO; TRAZODONE HCL50 M1 PO; VITAMIN B-1100 MG PO
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
[2016-05-30] MEDS ORDERED: TRAZODONE HCL50 M1 PO (14:46)
[2016-05-30 15:20] LABS: ABSOLUTE BASOPHIL COUNT 0 /CUMM (0.0-0.2); ABSOLUTE EOSINOPHIL COUNT 0 /CUMM (0.0-0.7); ABSOLUTE GRANULOCYTE CT 3.5 /CUMM (1.4-6.5); ABSOLUTE LYMPH COUNT 1.4 /CUMM (1.2-3.4); ABSOLUTE MONOCYTE COUNT 0.6 /CUMM (0.10-0.60); BASOPHIL % 0.3 % (0.0-2.0); EOSINOPHIL % 0.6 % (0-5); GRANULOCYTE % 62.2 % (42.2-75.2); HEMATOCRIT 39.6 % (42-52); MEAN CORPUSCULAR HGB 31.9 PG (27.0-31.0); MEAN CORPUSCULAR VOLUME 93.8 FL (80.0-94.0); MEAN PLATELET VOLUME 8.2 FL (7.4-10.4); PLATELET COUNT 189 /CUMM (130-400); RED BLOOD CELL CT 4.22 /CUMM (4.70-6.10); WHITE BLOOD CELL COUNT 5.6 /CUMM (4.8-10.8)
[2016-05-30 15:42] LABS: LITHIUM < 0.2 mmol/L (0.6-1.2)
--- NOTE | 2016-05-30 15:53 | CT SCAN REPORT ---
EXAMINATION: CT HEAD WITHOUT CONTRAST CLINICAL INFORMATION: Altered mental status COMPARISON: None TECHNIQUE: Contiguous axial imaging was performed from the skull base to vertex without intravenous administration of contrast. DLP: 600.71 mGy-cm FINDINGS: There is no evidence of acute intracranial hemorrhage or territorial infarction. No abnormal mass effect or midline shift is seen. Hassan to white matter differentiation is well preserved. No extra-axial fluid collections are identified. There is mild global volume loss with proportionate dilatation of the ventricles and cortical sulci. Bilateral periventricular white matter hypoattenuating changes are noted, likely reflecting sequela of chronic microangiopathy. The osseous calvarium is intact. The visualized paranasal sinuses and mastoid air cells are well aerated. IMPRESSION: No acute intracranial abnormality. Mild white matter changes of chronic microangiopathy.
[2016-06-02] MEDS ORDERED: TRAZODONE HCL50 M1 PO (10:41)
[2016-06-02] MEDS ORDERED: MELATONIN10 M5 PO (10:44)
[2016-06-02] MEDS ORDERED: ZYPREXA ZYDIS20 MG PO (11:05)
--- NOTE | 2016-06-02 11:33 | History & Physical ---
LUCITA REHMAN 06/02/16 1124: General Information and HPI Source of Information: family Exam Limitations: confusion, dementia History of Present Illness: He is 60-year-old man with past medical history of Alzheimer's dementia, Korsakoff psychosis, alcoholism, sober for last 4 years, depression, cognitive deficits. He was recently discharged to [facility] from [facility] on May 05 after getting treatment for acute bronchitis. He was brought into ER on May 30 by for worsening of confusion, loss of appetite, aggressive/ agitated and not sleeping for last 3 days. Patient is unable to answer any questions because of confusion and cognitive deficits. Most of information has been obtained from . He is looking restless and pacing around in his room. Sitter is present. is unable to take care of him and requested STR placement. Allergies/Medications Allergies: Coded Allergies: haloperidol (From HALDOL) (Severe, HEART RATE DROPS, HIVES 05/30/16) lithium (SEIZURE 04/25/16) Home Med list Divalproex Sodium (Divalproex Sodium ER) 500 MG TAB.ER.24H 1,000 MG PO 1700 ANXIETY (Reported) Escitalopram Oxalate 20 MG TABLET 1 TAB PO DAILY MENTAL HEALTH (Reported) Folic Acid 1 MG TABLET 1 TAB PO DAILY SUPPLEMENT (Reported) Melatonin 10 MG CAPSULE 1 TAB PO AT BED TIME SLEEP (Reported) Memantine HCl (Namenda) 10 MG TABLET 1 TAB PO BID MEMORY (Reported) Olanzapine 10 MG TABLET 20 MG PO DAILY MENTAL HEALTH (Reported) Thiamine HCl (Vitamin B-1) 100 MG TABLET 1 TAB PO DAILY VITAMIN SUPPLEMENT Trazodone HCl 50 MG TABLET 1 TAB PO QPM INSOMNIA (Reported) Trazodone HCl 50 MG TABLET 0.5 TAB PO BID ANXIETY/AGITATION (Reported) Compliance With Home Meds: GOOD Past History Travel History Traveled to [place] past 21 day No Medical History Neurological: Alzheimer's disease, dementia EENT: NONE Cardiovascular: NONE Respiratory: CONGESTED Gastrointestinal: NONE Hepatic: NONE Renal: NONE Musculoskeletal: NONE Psychiatric: PAST USE OF ALCOHOLISM WITH KORSAKOFF SYNDROME NO LONGER ALCOHOLIC Endocrine: NONE Blood Disorders: NONE Cancer(s): NONE LEAD SOFTWARE ENGINEER/Reproductive: NONE History of MRSA: No History of VRE: No History of CDIFF: No Isolation History: Standard Influenza Vaccine: 01/23/16 Surgical History Surgical History: ROTATOR CUFF SURGERY EYE SURGERY Past Family/Social History Psychosocial History Where do you live? Home Who Do You Live With? spouse Services at Home: None Smoking Status: Never Smoked ETOH Use: last drink 4 years ago Illicit Drug Use: denies illicit drug use Review of Systems Review of Systems Constitutional: Reports: see HPI. Exam & Diagnostic Data Last 24 Hrs of Vital Signs/I&O Vital Signs Date Time Temp Pulse Resp B/P Pulse O2 O2 Flow FiO2 Ox Delivery Rate 06/02 0807 96.7 88 18 172/77 96 Room Air 06/01 1939 98.1 82 20 110/58 95 Room Air 06/01 1433 98.5 90 18 134/84 95 Room Air 06/01 1141 98.1 94 18 140/66 98 Room Air Physical Exam General Appearance Alert, confused and restless Cardiovascular tachycardia Lungs Clear to Auscultation Abdomen Soft, No Tenderness, obese Extremities No Edema Diagnostic Data Other Results Head CT was done on May 30 that showed chronic microangiopathy. No acute intracranial pathology Assessment/Plan Assessment: He is 60-year-old man with past medical history of Alzheimer's dementia, Korsakoff psychosis, alcoholism, sober for last 4 years, depression, cognitive deficits and history of acute bronchitis. He is going to be admitted on general medicine floor as he need placement for short-term rehabilitation. is unable to take care of him at home. Plan * Monitor vitals every shift. Patient is hypertensive right now. Could be due to restlessness and anxiety. Currently he is not taking any antihypertensive at home. In past he was on amlodipine that was stopped later on. Closer monitoring of blood pressure. * Psych consult * Continue all his home medications * Continue 1:1 sitter * Avoid delirium triggers * EKG to see QTc interval as patient is on antipsychotics * Regular diet * Subcutaneous heparin for DVT prophylaxis * Mild pain pathway * Full code * Case management evaluation and placement to short-term rehabilitation As Ranked By This Provider Problem List: 1. Dementia 2. Agitation Core Measures/Miscellaneous Acute Coronary Syndrome ACS Diagnosis: No Cerebrovascular Accident CVA/TIA Diagnosis: No Congestive Heart Failure CHF Diagnosis: No Venous Thromboembolism VTE Risk Factors: Acute medical illness, Age > 40 VTE Prophylaxis Ordered Inpt: Pharm- Heparin No Mech VTE prophylaxis d/t: No contraindications No VTE Pharm Prophylaxis d/t: No contraindications VTE Diagnosis: No VTE Type: NONE VTE Confirmed by (Test): NONE Severe Sepsis Severe Sepsis Present: No Septic Shock Septic Shock Present: No Miscellaneous Documentation Attending Case Discussed With: MONIKA BRANHAM MD Primary Care Physician: PAMELA RIZZO DO Patient sees these Specialists Psychiatrist, Gladys Alvarado Level of Patient Care: General Medicine MONIKA BRANHAM MD 06/02/16 1232: Attending Review Statement Attending Statement Attending MD Statement: examined this patient, discuss w/resident/PA/HVAC ENGINEER, agreed w/resident/PA/HVAC ENGINEER, reviewed EMR data (avail), discussed with nursing, discussed with case mgmt, reviewed images, amended to note Attending Assessment/Plan: 60 y/o M with pmh sig for Alzheimer's dementia, Korsakoff psychosis, alcoholism, sober for last 4 years, depression, who was brought in by his secondary to having agitated behavior as well as excessive gas. Patient was recently admitted to [facility] with acute bronchitis. He was discharged to rehabilitation at that point. From rehabilitation he went home. He has a significant Alzheimer's dementia but according to the he is not too bad and she can handle him at home. Over the last few days he is more aggressive and agitated. Patient was brought into the emergency room 3 days ago. His workup included getting a CT head which was negative. No evidence of infection. His other labs also do not show any significant abnormality. Unfortunately patient' s cannot take care of him at home therefore he needs to go to a rehabilitation facility. Patient himself has advanced dementia and absolutely not able to provide any history. Vital Signs Date Time Temp Pulse Resp B/P Pulse O2 O2 Flow FiO2 Ox Delivery Rate 06/02 1157 97.7 87 24 138/78 94 06/02 0807 96.7 88 18 172/77 96 Room Air 06/01 1939 98.1 82 20 110/58 95 Room Air 06/01 1433 98.5 90 18 134/84 95 Room Air on exam; awake, not oriented. cv; s1,s2, rrr. resp; clear abd; soft, nt, bs+ ext; no edema. Laboratory Tests 05/31 05/30 1339 1506 Chemistry Sodium (137 - 145 mmol/L) 143 Potassium (3.5 - 5.1 mmol/L) 4.2 Chloride (98 - 107 mmol/L) 104 Carbon Dioxide (22 - 30 mmol/L) 29 Anion Gap (5 - 16) 11 BUN (9 - 20 mg/dL) 18 Creatinine (0.7 - 1.2 mg/dL) 0.8 Estimated GFR (>60 ml/min) > 60 BUN/Creatinine Ratio (7 - 25 %) 22.5 Glucose (65 - 99 mg/dL) 81 Calcium (8.4 - 10.2 mg/dL) 9.2 Total Bilirubin (0.2 - 1.3 mg/dL) 0.4 AST (17 - 59 U/L) 68 H ALT (21 - 72 U/L) 38 Alkaline Phosphatase (< 127 U/L) 67 Ammonia (9 - 30 umol/L) 21 Total Protein (6.3 - 8.2 g/dL) 7.1 Albumin (3.5 - 5.0 g/dL) 4.0 Globulin (1.9 - 4.2 gm/dL) 3.1 Albumin/Globulin Ratio (1.1 - 2.2 %) 1.3 Hematology CBC w Diff NO MAN DIFF REQ WBC (4.8 - 10.8 /CUMM) 5.6 RBC (4.70 - 6.10 /CUMM) 4.22 L Hgb (14.0 - 18.0 G/DL) 13.5 L Hct (42 - 52 %) 39.6 L MCV (80.0 - 94.0 FL) 93.8 MCH (27.0 - 31.0 PG) 31.9 H RDW (11.5 - 14.5 %) 14.0 Plt Count (130 - 400 /CUMM) 189 MPV (7.4 - 10.4 FL) 8.2 Gran % (42.2 - 75.2 %) 62.2 Lymphocytes % (20.5 - 51.1 %) 25.3 Monocytes % (1.7 - 9.3 %) 11.6 H Eosinophils % (0 - 5 %) 0.6 Basophils % (0.0 - 2.0 %) 0.3 Absolute Granulocytes (1.4 - 6.5 /CUMM) 3.5 Absolute Lymphocytes (1.2 - 3.4 /CUMM) 1.4 Absolute Monocytes (0.10 - 0.60 /CUMM) 0.6 Absolute Eosinophils (0.0 - 0.7 /CUMM) 0 Absolute Basophils (0.0 - 0.2 /CUMM) 0 PUBS MCHC (33.0 - 37.0 G/DL) 34.0 Toxicology Valproic Acid (50 - 120 ug/mL) 64.8 [place] (0.6 - 1.2 mmol/L) < 0.2 L Serum Alcohol (<10 MG/DL) < 10.0 Urines Urine Color (YEL,AMB,STR) YEL Urine Clarity (CLEAR) CLEAR Urine pH (5.0 - 8.0) 7.0 Ur Specific [place] (1.001 - 1.035) 1.020 Urine Protein (NEG,<30 MG/DL) NEG Urine Ketones (NEG) 15 H Urine Nitrite (NEG) NEG Urine Bilirubin (NEG) NEG@ICTO Urine Urobilinogen (0.1 - 1.0 EU/dl) 1.0 Ur Leukocyte Esterase (NEG) NEG Ur Microscopic EXAM NOT REQUIRED Urine Hemoglobin (NEG) NEG Urine Glucose (N MG/DL) NEG 05/30 1449 Toxicology Methadone Screen Cancelled Barbiturate Screen Cancelled Ur Phencyclidine Scrn Cancelled Amphetamines Screen Cancelled U Benzodiazepines Scrn Cancelled Urine Cocaine Screen Cancelled Urine Cannabis Screen Cancelled CT head: neg. A/P; 60 y/o M with pmh sig for Alzheimer's dementia, Korsakoff psychosis, alcoholism, sober for last 4 years, depression is admitted with more aggressive behavior as well as agitation. Patient's is unable to take care of him at home anymore. Patient is admitted to medicine floor. Will consult psychiatry. Please confirm and continue all of his home medications. Please check EKG to make QTC is not prolonged while patient on psych meds. DVT px; Hep sq. Full coded according to his .
[2016-06-02 11:57] VITALS: BP 138/78
--- NOTE | 2016-06-02 12:39 | Admission Certification ---
Admission Certification Certification Statement - As attending physician, I certify that at the time of - admission, based on clinical presentation, severity of - symptoms, need for further diagnostic testing and - therapeutic interventions, and risk of adverse outcomes - without in-hospital treatment, in my clinical assessment, - this patient requires an acute hospital stay for a minimum - of two nights or longer. I have also considered psychsocial - factors such as support system, advanced age, financial - issues, cognitive issues, and failed out-patient treatments, - past re-admission history, safety of patient, and lack of - compliance as applicable. Specific rationale supporting this admission is: Patient with advanced dementia admitted with aggressive behavior and altered mental state.
[2016-06-02 14:19] VITALS: BP 120/80
--- NOTE | 2016-06-02 17:43 | Cons- Psychiatry ---
Psychiatric Consult Date of Consult: 06/02/16 Reason for Consult: "Bernadette, depression, cognitive deficits." History of Present Illness: This is a 60-year-old male who was brought in to the ED by his on 2016 at 1412, with a chief complaint of "manic episode." The patient has a history of dementia and Korsakoff's, and has been sober for approximately 4 years. He has been increasingly agitated at home, and trying to get out of a moving car, and not sleeping, per the triage note. Per the ED crisis note, the patient at baseline can remember his name, his , Tesha's, name and the names of his animals, however he doesn't usually no dates and times. Also in that note, Tesha had reported that the patient had not slept in 3 days, has begun to stammer and has become aggressive towards her. She does not feel that she can manage him at home anymore. The patient has been followed for psychiatry by [facility] outpatient, Gladys Parkinson APRN. His last medication note shows that as of 04/11/2016, his psychotropic medications are: 1. Depakote ER 500mg 2 PO QHS 2. Lexapro 20mg daily 3. Zyprexa 25mg QHS x2 weeks then 20mg x2 weeks 4. Trazodone 50mg QHS PRN sleep, and 25mg BID PRN agitation Allergies: Coded Allergies: haloperidol (From HALDOL) (Severe, HEART RATE DROPS, HIVES 05/30/16) lithium (SEIZURE 04/25/16) Current Medications: Current Medications Sig/Lisa Start time Last Medication Dose Route Stop Time Status Admin Acetaminophen 650 MG Q6P PRN 06/02 1100 AC PO Divalproex Sodium 1,000 MG DAILY 06/03 1000 AC PO Escitalopram Oxalate 20 MG DAILY 06/03 1000 AC PO Folic Acid 1 MG DAILY 06/03 1000 AC PO Heparin Sodium 5,000 UNIT Q8 06/02 1400 AC 06/02 (Porcine) SC 1348 Melatonin 10 MG QPM 06/02 2200 AC PO Memantine 10 MG BID 06/02 2200 AC PO Olanzapine 20 MG DAILY 06/03 1000 AC PO Thiamine HCl 100 MG DAILY 06/03 1000 AC PO Trazodone HCl 50 MG QPM 06/02 2200 DC PO Trazodone HCl 50 MG QPM PRN 06/02 1215 AC PO 06/029 Trazodone HCl 25 MG BID 06/02 1100 AC 06/02 PO 1341 Trazodone HCl 50 MG QPM PRN 06/02 1100 CAN PO 06/02 2158 Past History Past Medical History Neurological: Alzheimer's disease, dementia, Korsikoff's syndrome EENT: NONE Cardiovascular: NONE Respiratory: CONGESTED Gastrointestinal: NONE Hepatic: NONE Renal: NONE Musculoskeletal: NONE Psychiatric: PAST USE OF ALCOHOLISM WITH KORSAKOFF SYNDROME NO LONGER ALCOHOLIC Endocrine: NONE Blood Disorders: NONE Cancer(s): NONE DIRECTOR OF SECURITIES AND REAL ESTATE/Reproductive: NONE Past Surgical History Surgical History: ROTATOR CUFF SURGERY EYE SURGERY Psychiatric Treatment History Psych Treatment Psychiatric Treatment Yes Outpatient Treatment Yes Location of Treatment [facility] Substance Use/Abuse History Drug Use/Abuse Substances Used/Abused No (alcohol use disorder in remiss) Substance Abuse Treatment Substance Abuse Treatment Past Substance Abuse [place] Yes Assessment/Plan Mental Status Mental Status Exam: The patient is alert, restless, directable, but unable to participate in a meaningful conversation. Most answers are comprised of Word salad and random thoughts. During the interview, the spouse's , Deepthi, called and spoke with him; he was attendance to her conversation, speaking nonsense to her, and eventually hanging up, before I could speak with her. The patient is in no apparent distress. Lab Results: Laboratory Tests 05/31 1339 Urines Urine Color (YEL,AMB,STR) YEL Urine Clarity (CLEAR) CLEAR Urine pH (5.0 - 8.0) 7.0 Ur Specific [place] (1.001 - 1.035) 1.020 Urine Protein (NEG,<30 MG/DL) NEG Urine Ketones (NEG) 15 H Urine Nitrite (NEG) NEG Urine Bilirubin (NEG) NEG@ICTO Urine Urobilinogen (0.1 - 1.0 EU/dl) 1.0 Ur Leukocyte Esterase (NEG) NEG Ur Microscopic EXAM NOT REQUIRED Urine Hemoglobin (NEG) NEG Urine Glucose (N MG/DL) NEG Diffential Diagnosis: Altered mental status most likely due to toxic or metabolic changes. 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 Prior to presentation to the ED, he had not slept for 3 days, which probably contributed to his agitation and altered mental status. The patient is in the hospital as a social of admission, while suitable nursing facility disposition is arranged, possibly long-term care in a memory unit. His spouse has told staff that she is unable to manage him at home anymore. We will adjust his medication timing back to the last orders from his outpatient provider here at risk in hospital, Gladys Alvarado APRN. Please consider workup for a reversible dementia screen, as these changes in mental status are relatively new. Last EKG to 01/11/2017 at 1229: Sinus rhythm, 80 BPM, QTC 439 ms. Provisional Treatment Plan: 1. Please complete a reversible dementia screen. 2. I will change the timing for Depakote ER 1000 mg by mouth to bedtime administration, beginning today, 06/02/2016. 3. Valproic acid/Depakote level will be due on the morning of 06/06/2016 at trough. I will order this study, but if the patient is discharged before that time, please request that on the discharge instructions/W 10. Results to myself and Gladys Alvarado APRN, at [facility] outpatient psychiatry. 4. I will change the timing of the patient's olanzapine 20 mg by mouth to bedtime administration, beginning today, 06/02/2016. a. Continue to monitor EKG, and hold for arrhythmia, or QTC greater than 475 ms. b. Monitor and replete electrolytes, especially potassium and magnesium to the upper portion of the normal range. 5. I will change the trazodone 50 mg by mouth bedtime administration, beginning today, 06/02/2016, for insomnia. 6. Please continue trazodone 25 mg PO 2 times per day as needed for agitation. 7. Continue escitalopram 20 mg by mouth daily. Thank you for asking us to participate in Juan's care. We will continue to follow along with you. Patricio Mahmood APRN, pager [phone].
[2016-06-02 22:44] VITALS: BP 140/81
[2016-06-03 06:21] VITALS: BP 140/80
--- NOTE | 2016-06-03 07:06 | PN- Housestaff ---
Subjective Follow-up For: Alzheimers Dementia Korsakoff psychosis Subjective: Patient seen and examined. He is seen lying on his side resting comfortably. He appears to be in no acute distress. At his bedside is a patient safety monitor who reports that the patient slept well overnight and had no aggressive behavior. He is somnolent and lethargic this morning and is refusing to answer question and has no subjective complaints. Review of systems is unobtainable. No overnight events reported. Review of Systems Constitutional: Reports: see HPI. Objective Last 24 Hrs of Vital Signs/I&O Vital Signs Date Time Temp Pulse Resp B/P Pulse O2 O2 Flow FiO2 Ox Delivery Rate 06/03 1423 97.1 90 18 104/82 95 Room Air 06/03 0621 96.3 87 20 140/80 95 Room Air 06/02 2244 85 20 140/81 95 Room Air Intake & Output 06/03 1600 06/03 0800 06/03 0000 Intake Total 480 480 480 Output Total Balance 480 480 480 Intake, Oral 480 480 480 Number 1 Bowel Movements Physical Exam General Appearance: No Acute Distress Other Physical Findings: General - well developed, well nourished, obese man in no acute distress HEENT - NCAT Neck - supple, No JVD, no lymphadenopathy CVS - S1, S2 w/o m/g/r Resp - CTA bilaterally GI - Soft, nontender, nondistended, bowel sounds intact Neuro - Somnolent/Lethargic, Limited neurologic exam Ext - normal pulses, no cyanosis/clubbing/edema Current Medications: Current Medications Sig/Lisa Start time Last Medication Dose Route Stop Time Status Admin Acetaminophen 650 MG Q6P PRN 06/02 1100 AC 06/03 PO 1218 Divalproex Sodium 1,000 MG AT BEDTIME 06/02 2200 AC 06/02 PO 2056 Escitalopram Oxalate 20 MG DAILY 06/03 1000 AC 06/03 PO 0800 Folic Acid 1 MG DAILY 06/03 1000 AC 06/03 PO 0801 Heparin Sodium 5,000 UNIT Q8 06/02 1400 AC 06/03 (Porcine) SC 1218 Melatonin 10 MG QPM 06/02 2200 AC 06/02 PO 2057 Memantine 10 MG BID 06/02 2200 AC 06/03 PO 0800 Olanzapine 20 MG AT BEDTIME 06/02 2200 AC 06/02 PO 2056 Patient Medication 1 ED ONE ONE 06/03 1345 DC Teaching ED 06/03 1346 Thiamine HCl 100 MG DAILY 06/03 1000 AC 06/03 PO 0800 Trazodone HCl 25 MG BID PRN 06/03 1419 AC PO Trazodone HCl 50 MG QPM 06/02 2200 DC PO Trazodone HCl 50 MG AT BEDTIME 06/02 2200 AC 06/02 PO 2058 Trazodone HCl 25 MG BID 06/02 1100 DC 06/03 PO 0801 Assessment/Plan Assessment: Patient is well appearing and is not reportedly agitated as per the patient safety monitor or nursing staff. Case management is still attempting to find placement for patient. Possible discharge over the weekend pending successful bed search. Alzheimers Dementia/Korsakoff Psychosis -Patient Safety Monitor -Avoid delerium triggers -EKG: QTC 431 -Namenda 10mg PO BID -Olanzapine 20mg PO QHS -Depakote ER 1g PO QHS -Folic acid/Thiamine -Trazodone 25mg PO BID PRN - agitation -Psych consult Depression - Lexapro 20mg PO Daily Pain Plan - Acetaminophen Diet - Regular Diet DVT PPx - Subcutaneous heparin Code Status - FULL CODE Problem List: 1. Dementia Pain Ratin Pain Location: None Pain Goal: Remain pain free Pain Plan: As noted in plan Tomorrow's Labs & Rationales: None
--- NOTE | 2016-06-03 08:57 | Discharge Summary ---
Visit Information Visit Dates Admission Date: 06/02/16 Discharge Date: 06/06/16 Hospital Course Course Attending Physician: MONIKA BRANHAM MD Primary Care Physician: PAMELA RIZZO DO Other Care Providers: Gladys Parkinson APRN: psychiatry Consulting Request: Consulting Specialty: Psychiatry Consulting Physician: Patricio Mahmood APRN Reason for Consult: Advanced dementia, agitation Hospital Course: 60-year-old man with pmhf of Alzheimer's dementia, Korsakoff psychosis, alcoholism, sober for last 4 years, depression, who was recently discharged from [facility] to rehab on 05/05/16 after getting treatment for acute bronchitis, was brought from home by his due to worsening aggressive behavior /agitation and insomnia. He stayed in ED for 3 days before he was admitted to general medicine floor. Patient was unable to answer any questions because of confusion and cognitive deficits. Most of information has been obtained from . Sitter is present. His was unable to take care of him and requested STR placement. 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 No acute intracranial pathology 1. Progressive alzheimer's dementia / depression : Patient was admitted to general medicine floor for worsening aggressive behavior /agitation. There was no evidence of infection from Labs/UA. Head CT was negative. Psychiatry consult was obtained regarding psychiatric medication adjustment. The patint followed [facility] outpatient psychiatry, Gladys Parkinson APRN. His last medication () included Depakote ER 500mg 2 PO QHS , Lexapro 20mg daily, Zyprexa 25mg QHS x2 weeks then 20mg x2 weeks, Trazodone 50mg QHS PRN sleep, and 25mg BID PRN agitation. According to psychiatry recommendation, timings of medication were changed; Depakote ER 1000 mg by mouth to bedtime, olanzapine 20 mg by mouth to bedtime, trazodone 50 mg by mouth bedtime. We continued trazodone 25 mg PO 2 times per day as needed for agitation and escitalopram 20 mg by mouth daily. Valproic acid level was checked as 75.2 on 06/06/2016. We checked EKG to make QTC is not prolonged while patient on psych meds (Qtc 439). During admission, pt required 1:1 sitter with agitation and disorientation. 2. Korsakoff syndrome: We continued supplement of thiamine and folic acid. DVT px; Hep sq. Full code Allergies: Coded Allergies: haloperidol (From HALDOL) (Severe, HEART RATE DROPS, HIVES 05/30/16) lithium (SEIZURE 04/25/16) Pertinent Lab Results: Valproic acid level: 75.2 on 06/06/16 Disposition Summary Disposition Principal Diagnosis: Progressive alzheimer's dementia / depression Additional Diagnosis: Korsakoff syndrome Discharge Disposition: SNF Discharge Instructions General Discharge Information Code Status: Full Code Patient's Diet: Regular diet Patient's Activity: Increase as tolerated Avoid fall risk Follow-Up Instructions/Appts: Please follow up with a primary doctor in 1 week after discharge Please follow up with [facility] Medications at Discharge Discharge Medications: Stop taking the following medications: Olanzapine (Olanzapine) 10 MG TABLET ORAL DAILY Qty = 180 Divalproex Sodium (Divalproex Sodium ER) 500 MG TAB.ER.24H ORAL 5 PM Qty = 30 Trazodone HCl (Trazodone HCl) 50 MG TABLET ORAL TWICE DAILY Continue taking these medications: Memantine HCl (Namenda) 10 MG TABLET 1 Tablet ORAL TWICE DAILY Qty = 180 Comments: Last Taken:06/06/16 Time:1000 Trazodone HCl (Trazodone HCl) 50 MG TABLET 1 Tablet ORAL AT BEDTIME Comments: Last Taken: 06/05/16 Time: 2200 Escitalopram Oxalate (Escitalopram Oxalate) 20 MG TABLET 1 Tablet ORAL DAILY Qty = 90 Comments: Last Taken:06/06/16 Time:1000 Folic Acid (Folic Acid) 1 MG TABLET 1 Tablet ORAL DAILY Qty = 90 Comments: Last Taken:06/06/16 Time:1000 Thiamine HCl (Vitamin B-1) 100 MG TABLET 1 Tablet ORAL DAILY Days = 60 Comments: Last Taken:06/06/16 Time:1000 Melatonin (Melatonin) 10 MG CAPSULE 1 Tablet ORAL AT BED TIME Comments: Last Taken:06/05/16 Time:2200 Start taking the following new medications: Acetaminophen (Tylenol) 325 MG TABLET 650 Milligram ORAL EVERY SIX HOURS NEEDED as needed for PAIN SCALE 1-3 ( MILD) Qty = 40 No Refills Divalproex Sodium (Divalproex Sodium) 500 MG TABLET.DR 1,000 Milligram ORAL AT BEDTIME Qty = 30 No Refills Comments: Last Taken: 06/05/16 Time: 2200 Trazodone HCl (Trazodone HCl) 50 MG TABLET 25 Milligram ORAL TWICE DAILY as needed for AGITAT/HALLUCINATION/IRRITABIL Qty = 60 No Refills Olanzapine (Olanzapine) 10 MG TABLET 20 Milligram ORAL AT BEDTIME Qty = 30 No Refills Comments: Last Taken: 06/05/16 Time: 2200 Copies To: LIEN RIZZO DO, MD,MONIKA; GLADYS RUIZ APRN; PATRICIO MAHMOOD APRN
[2016-06-03] MEDS ORDERED: TYLENOL325 M1 PO (08:58)
--- NOTE | 2016-06-03 12:52 | PN- Att Addend ---
Attending Addendum Attending Brief Note Patient seen and examined, has severe dementia therefore not able to communicate. There are no acute issues. Patient has a one-to-one sitter. Vital Signs Date Time Temp Pulse Resp B/P Pulse O2 O2 Flow FiO2 Ox Delivery Rate 06/03 0621 96.3 87 20 140/80 95 Room Air 06/02 2244 85 20 140/81 95 Room Air 06/02 1419 95.0 91 22 120/80 95 on exam; awake, confused cv; s1,s2, rrr. resp; clear. abd; soft, nt, bs+ ext; no edema. no labs. A/P; 60 y/o M with pmh sig for Alzheimer's dementia, Korsakoff psychosis, alcoholism, sober for last 4 years, depression is admitted with more aggressive behavior as well as agitation. Patient's is unable to take care of him at home anymore. Appreciate input from psychiatry. Please follow recommendations. Will adjust patient's medications as recommended by psych. DVT Px; hep sq. patient awaits placement.
[2016-06-03 14:23] VITALS: BP 104/82
[2016-06-03] MEDS ORDERED: TRAZODONE HCL50 M1 PO (14:24)
--- NOTE | 2016-06-03 14:30 | Patient Discharge Instructions ---
Discharge Instructions General Discharge Information You were seen/treated for: Aggressive behavior/agitation with underlying dementia Special Instructions: Please follow up with a primary doctor after discharge within 1 week. Please follow up with [facility] Diet Continue normal diet: Yes Recommended Diet: Regular Activity Full Activity/No Limits: No Activity Self Limited: Yes Activity Limited to: Walking with Assistance Additional ACTIVITY Info: Avoid fall risk Increase as tolerated Acute Coronary Syndrome Inclusion Criteria At DC or during hospital stay patient has or had the following: ACS DIAGNOSIS No Discharge Core Measures Meds if any: Prescribed or Continued at Discharge Meds if any: NOT Prescribed or Continued at Discharge Congestive Heart Failure Inclusion Criteria At DC or during hospital stay patient has or had the following: CHF DIAGNOSIS No Discharge Core Measures Meds if any: Prescribed or Continued at Discharge Meds if any: NOT Prescribed or Continued at Discharge Cerebrovascular accident Inclusion Criteria At DC or during hospital stay patient has or had the following: CVA/TIA Diagnosis No Discharge Core Measures Meds if any: Prescribed or Continued at Discharge Meds if any: NOT Prescribed or Continued at Discharge Venous thromboembolism Inclusion Criteria VTE Diagnosis No VTE Type NONE VTE Confirmed by (Test) NONE Discharge Core Measures - Per Current guidelines, there needs to be overlap - treatment for the first 5 days of Warfarin therapy. - If discharged on Warfarin prior to 5 days of - overlap therapy, the patient will need to be - assessed for post discharge needs including - *Post discharge parental anticoagulation - *Warfarin and/or parental anticoagulation education - *Follow up date to check INR post discharge At least 5 days overlap therapy as Inpatient No Meds if any: Prescribed or Continued at Discharge Note: Overlap Therapy is Warfarin and Anticoagulant Meds if any: NOT Prescribed or Continued at Discharge
[2016-06-03 21:49] VITALS: BP 110/80
[2016-06-04 06:00] VITALS: BP 118/76
--- NOTE | 2016-06-04 08:26 | PN- Housestaff ---
JOAN MOTA 06/04/16 0824: Subjective Follow-up For: - Dementia Subjective: Mr. Makc was comfortably sitting in his chair when I walked into his room this morning. He was alert, but was not oriented to time place or person. Currently on one-to-one sitter. Remained afebrile overnight. Blood pressure was stable. Oxygen saturation in the range of 94-95% on room air. Review of Systems Constitutional: Reports: see HPI. Objective Last 24 Hrs of Vital Signs/I&O Vital Signs Date Time Temp Pulse Resp B/P Pulse O2 O2 Flow FiO2 Ox Delivery Rate 06/04 0600 98.3 63 18 118/76 94 Room Air 06/03 2149 97.9 70 20 110/80 96 06/03 1423 97.1 90 18 104/82 95 Room Air Intake & Output 06/04 1600 06/04 0800 06/04 0000 Intake Total 100 700 Output Total 350 Balance -250 700 Intake, Oral 100 700 Number 0 Bowel Movements Output, Urine 350 Physical Exam General Appearance: No Acute Distress Other Physical Findings: General Exam: AAOx0, No acute distress, Skin: No rashes, no breakdown HEENT: PERRLA, EOMI Neck: Supple, No JVD No cervical lymphadenopathy CVS: Reg Rate, Normal S1,S2, No MGR Resp: Normal air entry, no ronchi/rales Abdomen: Soft, No tenderness, Normal Bowel Sounds Neuro: Limited neurological exam. Extremities: No cyanosis, pedal edema Current Medications: Current Medications Sig/Lisa Start time Last Medication Dose Route Stop Time Status Admin Acetaminophen 650 MG .STK-MED ONE 06/03 1214 DC PO 06/03 1215 Acetaminophen 650 MG Q6P PRN 06/02 1100 AC 06/03 PO 1218 Divalproex Sodium 1,000 MG AT BEDTIME 06/02 2199 AC 06/03 PO 205 Escitalopram Oxalate 20 MG DAILY 06/03 1000 AC 06/03 PO 0800 Folic Acid 1 MG DAILY 06/03 1000 AC 06/03 PO 08 Heparin Sodium 5,000 UNIT Q8 06/02 1400 AC 06/04 (Porcine) SC 0527 Melatonin 10 MG QPM 06/02 2199 AC 06/03 PO 2055 Memantine 10 MG BID 06/02 2199 AC 06/03 PO 2055 Olanzapine 20 MG AT BEDTIME 06/02 2199 AC 06/03 PO 2056 Patient Medication 1 ED ONE ONE 06/03 1345 DC 06/03 Teaching ED 06/03 1346 2057 Thiamine HCl 100 MG DAILY 06/03 1000 AC 06/03 PO 0800 Trazodone HCl 25 MG BID PRN 06/03 1419 AC PO Trazodone HCl 50 MG AT BEDTIME 06/02 2200 AC 06/03 PO 205 Trazodone HCl 25 MG BID 06/02 1100 DC 06/03 PO 0801 Assessment/Plan Assessment: Patient is well appearing and is not reportedly agitated as per the patient safety monitor or nursing staff. Case management is still attempting to find placement for patient. Possible discharge over the weekend pending successful bed search. Alzheimers Dementia/Korsakoff Psychosis -Patient Safety Monitor -Avoid delerium triggers -EKG: QTC 431 -Namenda 10mg PO BID -Olanzapine 20mg PO QHS -Depakote ER 1g PO QHS -Folic acid/Thiamine -Trazodone 25mg PO BID PRN - agitation -Await psychiatry recommendation. Depression - Lexapro 20mg PO Daily Problem List: 1. Aggressive behavior 2. Agitation 3. Dementia Pain Ratin Pain Location: Could not assess Pain Goal: Pain 4 or less Pain Plan: Tylenol Tomorrow's Labs & Rationales: No labs necessary. Patient stable RUPERTO ASHBY MD 06/04/16 1728: Attending Review Statement Attending Statement Attending Statement: examined this patient, discuss w/resident/PA/COOK ENCHILADA, agreed w/resident/PA/COOK ENCHILADA, discussed with nursing, amended to note Attending Assessment/Plan: The patient was seen and discussed with house staff. Agree with the plan of care as outlined.
[2016-06-04 15:04] VITALS: BP 142/88
[2016-06-04 23:02] VITALS: BP 132/84
[2016-06-05 06:46] VITALS: BP 136/78
--- NOTE | 2016-06-05 08:33 | PN- Housestaff ---
LUKE FRANCIS,INDIRA 06/05/16 0833: Subjective Follow-up For: Alzheimer's dementia Korsakoff psychosis Subjective: Patient seen and examined. He is seen lying flat in bed resting comfortably. He appears to be in no acute distress. At his bedside is a patient safety monitor the patient slept well last night, ate his breakfast, and had a bowel movement this morning. When the patient is asked questions he replies with mumbled broken sentences. When asked if he has any pain or complaints he does not seem to understand the question. Review of systems is unobtainable. No overnight events reported. Review of Systems Constitutional: Reports: see HPI. Objective Last 24 Hrs of Vital Signs/I&O Vital Signs Date Time Temp Pulse Resp B/P Pulse O2 O2 Flow FiO2 Ox Delivery Rate 06/05 0646 98.2 85 20 136/78 94 Room Air 06/04 2302 98.5 72 20 132/84 90 Room Air 06/04 1504 98.7 78 20 142/88 93 Intake & Output 06/05 1600 06/05 0800 06/05 0000 Intake Total 120 1500 Output Total Balance 120 1500 Intake, Oral 120 1500 Number 0 Bowel Movements Physical Exam General Appearance: Alert, Cooperative, No Acute Distress Other Physical Findings: General - well developed, well nourished, obese man in no acute distress HEENT - NCAT Neck - supple, No JVD, no lymphadenopathy CVS - S1, S2 w/o m/g/r Resp - CTA bilaterally GI - Soft, nontender, nondistended, bowel sounds intact Neuro - Somnolent/Lethargic, Limited neurologic exam Ext - normal pulses, no cyanosis/clubbing/edema Current Medications: Current Medications Sig/Lisa Start time Last Medication Dose Route Stop Time Status Admin Acetaminophen 650 MG Q6P PRN 06/02 1100 AC 06/03 PO 1218 Divalproex Sodium 1,000 MG AT BEDTIME 06/02 2199 AC 06/04 PO 2135 Escitalopram Oxalate 20 MG DAILY 06/03 1000 AC 06/05 PO 1009 Folic Acid 1 MG DAILY 06/03 1000 AC 06/05 PO 1009 Heparin Sodium 5,000 UNIT Q8 06/02 1400 AC 06/05 (Porcine) SC 0607 Melatonin 10 MG QPM 06/020 AC 06/04 PO 2135 Memantine 10 MG BID 02/09 2200 AC 06/05 PO 1009 Olanzapine 20 MG AT BEDTIME 06/02 2200 AC 06/04 PO 2136 Thiamine HCl 100 MG DAILY 06/03 1000 AC 06/05 PO 1009 Trazodone HCl 25 MG BID PRN 06/03 1419 AC PO Trazodone HCl 50 MG AT BEDTIME 06/02 2200 AC 06/04 PO 2135 Assessment/Plan Assessment: Patient continues to do well and is not agitated per the safety monitor or nursing staff. Case management is still searching for long-term placement, possible discharge over weekend/early next week. Alzheimers Dementia/Korsakoff Psychosis -Patient Safety Monitor -Avoid delerium triggers -EKG: QTC 431 -Namenda 10mg PO BID -Olanzapine 20mg PO QHS -Depakote ER 1g PO QHS -Folic acid/Thiamine -Trazodone 25mg PO BID PRN - agitation -Await psychiatry recommendation. Depression - Lexapro 20mg PO Daily Diet-regular diet DVT prophylaxis-subcutaneous heparin CODE STATUS-full code Problem List: 1. Dementia Pain Ratin Pain Location: None Pain Goal: Remain pain free Pain Plan: As noted in plan Tomorrow's Labs & Rationales: None RUPERTO ASHBY MD 06/05/16 1306: Attending MD Review Statement Attending Statement Attending MD Statement: examined this patient, discuss w/resident/PA/EMBEDDED ENGINEER, agreed w/resident/PA/EMBEDDED ENGINEER, reviewed EMR data (avail), amended to note Attending Assessment/Plan: The patient was seen and discussed with house staff. Continue current care.
[2016-06-05 14:53] VITALS: BP 130/60
[2016-06-05 22:34] VITALS: BP 122/76
[2016-06-06 06:30] VITALS: BP 144/86
--- NOTE | 2016-06-06 07:35 | PN- Housestaff ---
LUKE FRANCIS,INDIRA 06/06/16 0735: Subjective Follow-up For: Alzheimer's dementia Korsakoff psychosis Subjective: Patient seen and examined. He is seen lying flat in bed resting comfortably. He appears to be in no acute distress. At his bedside is a patient safety monitor whom offers no further collateral information. Presently patient has no complaints. Review of systems is unobtainable. No overnight events reported. Review of Systems Constitutional: Reports: see HPI. Objective Last 24 Hrs of Vital Signs/I&O Vital Signs Date Time Temp Pulse Resp B/P Pulse O2 O2 Flow FiO2 Ox Delivery Rate 06/06 1445 97.9 100 20 140/90 06/06 1424 97.9 100 20 140/90 94 Room Air 06/06 0945 Room Air 06/06 0630 97.6 65 20 144/86 94 Room Air 06/05 2234 97.5 70 20 122/76 94 Room Air Intake & Output 06/06 1600 06/06 0800 06/06 0000 Intake Total 7931 216 1520 Output Total 400 Balance 1200 -200 1500 Intake, Oral 2646 408 4377 Number 0 Bowel Movements Output, Urine 400 Physical Exam General Appearance: Alert, Cooperative, No Acute Distress Other Physical Findings: General - well developed, well nourished, obese man in no acute distress HEENT - NCAT Neck - supple, No JVD, no lymphadenopathy CVS - S1, S2 w/o m/g/r Resp - CTA bilaterally GI - Soft, nontender, nondistended, bowel sounds intact Neuro - Somnolent/Lethargic, Limited neurologic exam Ext - normal pulses, no cyanosis/clubbing/edema Current Medications: Current Medications Sig/Lisa Start time Last Medication Dose Route Stop Time Status Admin Acetaminophen 650 MG Q6P PRN 06/02 1100 AC 06/03 PO 1218 Divalproex Sodium 1,000 MG AT BEDTIME 06/02 2199 AC 06/05 PO 2051 Escitalopram Oxalate 20 MG DAILY 06/03 1000 AC 06/06 PO 07 Folic Acid 1 MG DAILY 06/03 1000 AC 06/06 PO 07 Heparin Sodium 5,000 UNIT Q8 06/02 1400 AC 06/06 (Porcine) SC 0525 Melatonin 10 MG QPM 06/02 2199 AC 06/05 PO 2052 Memantine 10 MG BID 06/02 2199 AC 06/06 PO 07 Olanzapine 20 MG AT BEDTIME 06/020 AC 06/05 PO 2052 Thiamine HCl 100 MG DAILY 06/03 1000 AC 06/06 PO 0727 Trazodone HCl 25 MG BID PRN 06/03 1419 AC PO Trazodone HCl 50 MG AT BEDTIME 06/02 2200 AC 06/05 PO 2052 Last 24 Hrs of Lab/Rolando Results Last 24 Hrs of Labs/Mics: Laboratory Tests 06/06/16 0810: Valproic Acid 75.2 Assessment/Plan Assessment: Patient appears well, patient safety monitor still in place. Case management was able to obtain placement for patient at [facility] for further care of his Alzheimer's dementia. Patient is to be discharged today. Alzheimers Dementia/Korsakoff Psychosis -Patient Safety Monitor -Avoid delerium triggers -EKG: QTC 431 -Namenda 10mg PO BID -Olanzapine 20mg PO QHS -Depakote ER 1g PO QHS -Folic acid/Thiamine -Trazodone 25mg PO BID PRN - agitation -Psych consult Depression - Lexapro 20mg PO Daily Diet-regular diet DVT prophylaxis-subcutaneous heparin CODE STATUS-full code Problem List: 1. Dementia Pain Ratin Pain Location: None Pain Goal: Remain pain free Pain Plan: None Tomorrow's Labs & Rationales: None YONAS FRANCIS,MONIKA 06/06/16 1225: Attending MD Review Statement Attending Statement Attending MD Statement: examined this patient, discuss w/resident/PA/[employer] INSTALLER, agreed w/resident/PA/[employer] INSTALLER, reviewed EMR data (avail), discussed with nursing, discussed with case mgmt, amended to note Attending Assessment/Plan: Patient was seen and discussed with the housestaff, continue current care. Patient needs placement.
[2016-06-06 14:24] VITALS: BP 140/90
[2016-06-06 14:45] VITALS: BP 140/90
[2016-06-06] MEDS ORDERED: OLANZAPINE10 M1 PO (14:53)
[2016-06-06] MEDS ORDERED: DIVALPROEX SOD500 M2 PO (14:53)
== END 2016-06-06 16:00 | DRG 42 ==
LOC: ENRESERVTM → ENRESERVDT → ERH 14:04 → ENPENDDIS 06-02 10:06 → 2NA 06-02 10:06 → ERHI 06-02 10:06 → 2NA 06-02 11:29
PROVIDERS: Emergency Medicine; ADMIT Hospitalist
DX: G30.9 Alzheimer's disease, unspecified (principal); F02.81 Dementia in other diseases classified elsewhere, unspecified severity, with behavioral disturbance; F10.21 Alcohol dependence, in remission; F32.9 Major depressive disorder, single episode, unspecified; E66.9 Obesity, unspecified; Z68.34 Body mass index [BMI] 34.0-34.9, adult
CPT/HCPCS: 2NAP; 80307; 81003; 93005; 93010; G0480; J1644; J3490